=== PATIENT | male | born 1995 | race Two or more races ===

== ENCOUNTER → 2020-11-25 12:59 | Outpatient (REF) | payer OTHER, SELFPAY | LOC: HO.SL 12:59 | PROVIDERS: PCP Internal Medicine; Visit Provider Internal Medicine | DX: G47.33 Obstructive sleep apnea (adult) (pediatric) (principal) | CPT/HCPCS: 95806 ==

== ENCOUNTER 2021-03-02 07:58 | Outpatient (REF) | payer OTHER, SELFPAY ==
[2021-03-02 08:25] LABS: MANUAL DIFF FLAG NO
[2021-03-02 08:44] LABS: Basophils Absolute Auto 0.1 X10*3/uL (0.0-0.2); Eosinophils Absolute Auto 0.3 X10*3/uL (0.0-0.4); Eosinophils Percent Auto 4.6 % (0-4); Hematocrit 47.2 % (42-52); Hemoglobin 15.1 g/dl (14.0-18.0); Imm Gran Abs Auto 0.03 X10*3/uL (0.00-0.03); Imm Gran Pct Auto 0.5 % (0.0-0.4); Lymphocytes Absolute Auto 2.1 X10*3/uL (1.2-4.9); Lymphocytes Percent Auto 34.9 % (20-40); Mean Corpuscular Hemoglobin 26.5 pg (27.0-33.0); Mean Platelet Volume 11.4 fL (9.4-12.4); Monocytes Absolute Auto 0.8 X10*3/uL (0.1-1.2); Monocytes Percent Auto 13.2 % (2-11); Neutrophils Absolute Auto 2.7 X10*3/uL (2.0-8.3); Neutrophils Percent Auto 45.8 % (45-73); Platelet Count 173 X10*3/uL (160-400); Red Blood Count 5.69 X10*6/uL (4.60-5.80); Red Cell Distribution Width 12.5 % (11.0-16.0); White Blood Count 5.9 X10*3/uL (4.8-10.8)
[2021-03-02 09:01] LABS: Alanine Aminotransferase 37 U/L (0-40); Albumin Level 4.4 g/dL (3.5-5.0); Alkaline Phosphatase 59 U/L (39-117); Anion Gap 14 (12-20); Aspartate Amino Transferase 26 U/L (5-37); Bilirubin Total 0.4 mg/dL (0.0-1.0); Blood Urea Nitrogen 17 mg/dL (9-16); Calcium 9.4 mg/dL (8.4-10.2); Carbon Dioxide 28 mmol/L (22-29); Chloride 104 mmol/L (96-108); Cholesterol 171 mg/dL; Estimated Glomerular Filt Rate > 60; Glucose Fasting 89 mg/dL (60-99); HDL Cholesterol 56 mg/dL; LDL Cholesterol Calculated 96 mg/dl; Potassium 4.5 mmol/L (3.3-5.1); Sodium 141 mmol/L (135-145); Triglycerides 95 mg/dL
[2021-03-02 09:24] LABS: Thyroid Stimulating Hormone 1.31 uIU/mL (0.32-4.0)
== END 2021-03-02 07:59 | disposition home or self-care (01) ==
LOC: HO.LAB 07:58
PROVIDERS: PCP Internal Medicine; Visit Provider Internal Medicine
DX: E66.01 Morbid (severe) obesity due to excess calories (principal)
CPT/HCPCS: 36415; 80053; 80061; 84443; 85025

== ENCOUNTER → 2021-08-25 13:37 | Outpatient (BNVA) | payer OTHER, SELFPAY | PROVIDERS: PCP Internal Medicine; Visit Provider Dietitian, Registered | DX: E66.01 Morbid (severe) obesity due to excess calories (principal); Z68.41 Body mass index [BMI] 40.0-44.9, adult | CPT/HCPCS: 97802 ==

== ENCOUNTER → 2021-10-22 11:35 | Outpatient (BNVA) | payer OTHER, SELFPAY | PROVIDERS: PCP Internal Medicine; Visit Provider Dietitian, Registered | DX: E66.01 Morbid (severe) obesity due to excess calories (principal) | CPT/HCPCS: 97803 ==

== ENCOUNTER 2021-12-21 19:09 | Emergency (ER) | payer OTHER, SELFPAY | END 2021-12-21 21:46 | disposition left against medical advice (07) | PROVIDERS: Emergency Provider Emergency Medicine; PCP Internal Medicine | DX: N50.89 Other specified disorders of the male genital organs (principal) ==

== ENCOUNTER → 2021-12-23 11:32 | Outpatient (BNVA) | payer OTHER, SELFPAY | PROVIDERS: PCP Internal Medicine; Visit Provider Dietitian, Registered | DX: E66.01 Morbid (severe) obesity due to excess calories (principal); Z68.41 Body mass index [BMI] 40.0-44.9, adult; Z71.3 Dietary counseling and surveillance | CPT/HCPCS: 97803 ==

== ENCOUNTER 2021-12-24 14:24 | Outpatient (REF) | payer OTHER, SELFPAY ==
--- NOTE | ~2021-12-24 | US_ITS ---
EXAMINATION: US SCROTUM CLINICAL INFORMATION: Epididymitis-testicular pain. COMPARISON: None TECHNIQUE: A sonogram of the scrotum was performed assessing mcleod-scale appearance and color Doppler flow. Spectral Doppler analysis of the arterial and venous flow were performed in the testes bilaterally. FINDINGS: RIGHT: Right testicle measures 3.92 x 2.08 x 2.79 cm, volume 11.9 mL. No focal testicular parenchymal lesions are visualized. Spectral Doppler analysis of the arterial and venous flow is normal in the right testis. Right epididymal head is normal in size. There is a small varicocele. Right epididymal Doppler flow is normal. LEFT: Left testicle measures 4.66 x 2.37 x 3.45 cm, volume 19.9 mL. No focal testicular parenchymal lesions are visualized. Spectral Doppler analysis of the arterial and venous flow is normal in the left testis. Left epididymal head is normal in size. There is a small varicocele. Left epididymal Doppler flow is normal. US/US scrotum IMPRESSION: Small bilateral varicoceles. Normal appearance of the bilateral testes.
== END 2021-12-24 14:25 | disposition home or self-care (01) ==
LOC: HO.HMGCX 14:24
PROVIDERS: Visit Provider Internal Medicine
DX: N45.1 Epididymitis (principal)
CPT/HCPCS: 76870

== ENCOUNTER 2022-03-24 11:55 | Outpatient (REF) | payer OTHER, SELFPAY ==
[2022-03-24 12:59] LABS: Alanine Aminotransferase 61 U/L (0-40); Albumin Level 4.5 g/dL (3.5-5.0); Alkaline Phosphatase 52 U/L (39-117); Anion Gap 13 (12-20); Aspartate Amino Transferase 34 U/L (5-37); Bilirubin Total 0.5 mg/dL (0.0-1.0); Blood Urea Nitrogen 15 mg/dL (9-16); Calcium 9.3 mg/dL (8.4-10.2); Carbon Dioxide 26 mmol/L (22-29); Chloride 103 mmol/L (96-108); Cholesterol 177 mg/dL; Estimated Glomerular Filt Rate > 60; Glucose Fasting 92 mg/dL (60-99); HDL Cholesterol 56 mg/dL; LDL Cholesterol Calculated 97 mg/dl; Potassium 4.5 mmol/L (3.3-5.1); Sodium 137 mmol/L (135-145); Total Protein 7.1 g/dL (6.5-8.0); Triglycerides 121 mg/dL
== END 2022-03-24 11:56 | disposition home or self-care (01) ==
LOC: HO.LAB 11:55
PROVIDERS: PCP Internal Medicine; Visit Provider Internal Medicine
DX: Z00.00 Encounter for general adult medical examination without abnormal findings (principal); E78.5 Hyperlipidemia, unspecified
CPT/HCPCS: 36415; 80053; 80061

== ENCOUNTER 2022-04-06 11:30 | Outpatient (AMB) | payer OTHER, SELFPAY ==
--- NOTE | 2022-04-05 14:37 | A.OFFVIS_ITS ---
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 Iodinated Contrast Media [IV DYE, IODINE CONTAINING CONTRAST ] Allergy (Intermediate, Verified 03/09/23 14:42) VOMITING HPI HPI Comments History of Present Illness Details Ed is a very pleasant male. He is a patient of Dr. Calvo. He is seen for the following urologic conditions - varicocele Varicocele Natural history discussed Minimal pain No issues concerning fertility Did report prior epididymitis 6 month follow-up [facility] Medical History Asperger syndrome Depression with anxiety Eczema AKBAR (generalized anxiety disorder) Insomnia Mild recurrent major depression Morbid obesity Otitis externa Snoring Varicocele Surgical History History of hernia repair History of lymph node excision Family History Father Essential hypertension Mother Essential hypertension Sister Healthy adult Paternal Grandmother Stroke Social History Housing: Apartment Alcohol intake: never Patient Tobacco Use Status: Never used Tobacco e-Cigarette/Vaping Use: Never Used Second Hand Smoke Exposure: No service: No Current occupational status: unemployed Cognitive needs: No Hearing needs: No Vision needs: No Review of Systems Const Denies chills and Denies fever(s) Card Reports no additional complaints and Denies syncope Resp Denies cough GI Denies abdominal pain and Denies heartburn Reports as per HPI and Denies change in libido Neuro Denies syncope Psych Denies change in libido Endo Denies change in libido Physical Exam Const General: cooperative, healthy appearing, comfortable and no acute distress Orientation/consciousness: patient oriented x3 HEENT Face and sinus: Yes normal facial exam Mouth: moist mucous membranes Neck Neck: Yes normal visual inspection, Yes full ROM and Yes trachea midline Chest Chest palpation & inspection: normal inspection of the chest Resp Effort & Inspection: normal respiratory effort, able to speak in complete sentences and no respiratory distress GI Inspection: Yes normal to inspection Back/Spine/Pelvis Cervical Spine: normal cervical lordosis Thoracic/Lumbar Spine: thoracic and lumbar spine normal to inspection Skin General skin exam: no rashes or lesions noted Neuro General: patient oriented x3, gait normal, tone normal and moves all extremities Extrem General: Yes normal to inspection and Yes capillary refill normal Assessment & Plan Assessment & Plan (1) Varicocele: Code(s): I86.1 - Scrotal varices Plan 6 month follow-up Patient Instructions: Imaging studies, laboratory and physical exam results were discussed and reviewed in detail. No major barriers to patient understanding were identified. An opportunity to ask questions regarding the treatment plan was provided. All questions were answered. The patient expressed understanding and agreement with the above treatment plan. The patient is aware they should contact our office by phone for worsening of their current condition or the appearance of new urologic symptoms. Compliance is encouraged with any medications and followup testing that is ordered. It is a privilege to participate in the urologic care of your patient. If you have any questions or concerns regarding treatment for the above conditions, or other urologic issues, please do not hesitate to contact me. The office telephone contact is [phone]. This note is constructed using voice recognition software. While every effort has been made to ensure accuracy before school babysitter errors may have been included. Yours sincerely, Dr Dameon Hurtado MD, [facility] - Urology Providers of Expert, Compassionate Care for the Genitourinary System Coding Level of Care Code New Pt Level 3 (95062) Diagnoses Varicocele I86.1
== END 2022-04-06 12:17 | disposition home or self-care (01) ==
LOC: HO.HUSH 11:30
PROVIDERS: PCP Internal Medicine; Visit Provider Urology
DX: I86.1 Scrotal varices (principal)
CPT/HCPCS: 99203

== ENCOUNTER → 2022-04-06 11:30 | Outpatient (BNVA) | payer OTHER, SELFPAY | PROVIDERS: PCP Internal Medicine; Visit Provider Urology | DX: I86.1 Scrotal varices (principal) | CPT/HCPCS: 99202 ==

== ENCOUNTER → 2022-10-12 13:37 | Outpatient (BNVA) | payer OTHER, SELFPAY | PROVIDERS: PCP Internal Medicine; Visit Provider Urology | DX: I86.1 Scrotal varices (principal) | CPT/HCPCS: 99212 ==

== ENCOUNTER 2022-12-07 20:09 | Outpatient (REF) | payer OTHER, SELFPAY ==
[2022-12-07 21:16] LABS: Influenza A PCR NEGATIVE (Negative); Influenza B PCR NEGATIVE (Negative); Resp Syncy Virus RNA Qual PCR NEGATIVE (Negative); SARS COV2 PCR INHOUSE NEGATIVE (Negative)
== END 2022-12-07 20:10 | disposition home or self-care (01) ==
LOC: HO.LNP 20:09
PROVIDERS: Visit Provider Nurse Practitioner Family
DX: Z20.822 Contact with and (suspected) exposure to COVID-19 (principal); R09.89 Other specified symptoms and signs involving the circulatory and respiratory systems
CPT/HCPCS: 0241U

== ENCOUNTER 2023-02-06 02:23 | Emergency (ER) | payer OTHER, SELFPAY ==
[2023-02-06 02:34] VITALS: BP 142/77; PULSE 104; RESP 16; TEMP 36.7; O2SAT 97; BMI 40.4
[2023-02-06] MEDS: 0.9 % Sodium Chloride 1,000 ML 999 ML IV ×2 (04:17→05:42)
[2023-02-06 04:23] LABS: MANUAL DIFF FLAG NO
[2023-02-06 04:24] LABS: Basophils Absolute Auto 0.1 X10*3/uL (0.0-0.2); Basophils Percent Auto 0.5 % (0-2); Eosinophils Absolute Auto 0.1 X10*3/uL (0.0-0.4); Eosinophils Percent Auto 0.9 % (0-4); Hematocrit 55.3 % (42.0-52.0); Hemoglobin 18.1 g/dl (14.0-18.0); Imm Gran Abs Auto 0.06 X10*3/uL (0.00-0.03); Imm Gran Pct Auto 0.5 % (0.0-0.4); Lymphocytes Absolute Auto 0.7 X10*3/uL (1.2-4.9); Lymphocytes Percent Auto 5.8 % (20-40); Mean Corpuscular HGB Conc 32.7 g/dl (31.0-36.0); Mean Corpuscular Hemoglobin 26.6 pg (27.0-33.0); Mean Corpuscular Volume 81.2 fL (80.0-98.0); Mean Platelet Volume 11.1 fL (9.4-12.4); Monocytes Absolute Auto 0.9 X10*3/uL (0.1-1.2); Neutrophils Absolute Auto 9.8 x10*3/uL (2.0-8.3); Neutrophils Percent Auto 84.3 % (45-73); Platelet Count 208 X10*3/uL (160-400); Red Blood Count 6.81 X10*6/uL (4.60-5.80); Red Cell Distribution Width 12.4 % (11.0-16.0); White Blood Count 11.6 X10*3/uL (4.8-10.8)
[2023-02-06 05:11] LABS: Alanine Aminotransferase 46 U/L (0-40); Albumin Level 4.6 g/dL (3.5-5.0); Alkaline Phosphatase 56 U/L (39-117); Anion Gap 17 (12-20); Aspartate Amino Transferase 25 U/L (5-37); Bilirubin Total 0.7 mg/dL (0.0-1.0); Blood Urea Nitrogen 19 mg/dL (9-16); Calcium 9.2 mg/dL (8.4-10.2); Carbon Dioxide 24 mmol/L (22-29); Chloride 107 mmol/L (96-108); Creatinine Clr Calc Pharmacy 187.4; Estimated Glomerular Filt Rate > 60; Glucose Random 100 mg/dL (60-115); Potassium 4.5 mmol/L (3.3-5.1); Sodium 143 mmol/L (135-145); Total Protein 7.5 g/dL (6.5-8.0)
--- NOTE | 2023-02-06 05:41 | ED.NAVMDI ---
HPI - Nausea/Vomiting/Diarrhea General Chief complaint: Abdominal Pain Stated complaint: Diarrhea Time Seen by Provider: 02/06/23 03:57 Source: patient Mode of arrival: ambulatory History of Present Illness HPI Narrative: 27-year-old male who presents with multiple episodes of nausea, vomiting, diarrhea that began after he ate a ham and metzger sandwich. Patient denies any complaints of abdominal pain or urinary symptoms prior to this event and denies any associated fevers or chills. Patient states that his last episode of diarrhea which just prior to arrival and that his last vomiting episode occurred in the waiting room. Related Data Home Medications Medication Instructions Recorded Confirmed lorazepam 1 mg tablet (Ativan) 1 mg PO BID PRN 10/15/20 12/07/22 escitalopram oxalate 10 mg tablet 15 mg PO BEDTIME 12/17/21 12/07/22 trazodone 100 mg tablet 100 mg PO BEDTIME 12/17/21 12/07/22 Previous Rx's Medication Instructions Recorded ibuprofen 600 mg tablet 600 mg PO Q8H PRN pain 10 days #30 12/21/21 tabs bupropion HCl 150 mg 24 hr tablet, 150 mg PO QAM 30 days #30 tabs 03/31/22 extended release nirmatrelvir 300 mg (150 mg 3 ea PO PER PKG DIR 5 days #30 ea 09/21/22 x2)-ritonavir 100 mg tablet,dose pack(EUA) (Paxlovid) sumatriptan succinate 50 mg tablet 50 mg PO Q2-4H PRN migraine 11/03/22 headache 30 days #9 tabs amoxicillin 875 mg-potassium 1 tab PO Q12H 10 days #20 tabs 12/07/22 clavulanate 125 mg tablet ondansetron 4 mg oral soluble film 4 mg PO Q8H PRN nausea and 02/06/23 vomiting #30 ea Allergies Allergy/AdvReac Type Severity Reaction Status Date / Time barium sulfate Allergy Intermediate VOMITING Verified 12/07/22 15:30 [ORAL CONTRAST] RED. Iodinated Contrast Media Allergy Intermediate VOMITING Verified 12/07/22 15:30 [IV DYE, IODINE CONTAINING CONTRAST ] Review of Systems Review of Systems: Pertinent positives and negatives as stated in HPI PMFSH Past Medical History Source: nursing notes reviewed Medical History Asperger syndrome Depression with anxiety Eczema AKBAR (generalized anxiety disorder) Insomnia Mild recurrent major depression Morbid obesity Otitis externa Snoring Varicocele Surgical History History of hernia repair History of lymph node excision Family History Family History Father Essential hypertension Mother Essential hypertension Sister Healthy adult Paternal Grandmother Stroke Social History Social History Housing: Apartment Alcohol intake: never Patient Tobacco Use Status: Never used Tobacco Tobacco use type: Cigarette e-Cigarette/Vaping Use: Never Used Second Hand Smoke Exposure: No Advance Directives: No Advance Directives Information Provided: Yes service: No Current occupational status: unemployed Current occupational exposures/hazards: Yes (possibly while he was in school over a year ago) Cognitive needs: No Hearing needs: No Vision needs: No Physical Exam Vital Signs: Vital Signs: Last Vital Signs Temp 98.1 F 02/06/23 02:34 Pulse 104 H 02/06/23 02:34 Resp 16 02/06/23 02:34 BP 142/77 H 02/06/23 02:34 Pulse Ox 97 02/06/23 02:34 O2 Del Method Room Air 02/06/23 02:34 BMI result Body Mass Index 40.4 VITAL SIGNS: Reviewed. GENERAL: Well developed, well nourished, in no acute distress. HEAD: Normocephalic/atraumatic EYES: PERRLA, EOMI EARS: Ext canals without abnormality NOSE: Nares patent bilateral OROPHARYNX: no oral lesions noted, posterior pharynx clear NECK: Supple, no adenopathy LUNGS: Normal breath sounds. No adventitious sounds or accessory muscle use. SpO2<97> CARDIOVASCULAR: Regular rate and rhythm without noted murmurs ABDOMEN: Soft, non-tender, non-distended with bowel sounds. MUSCULOSKELETAL: No tenderness, deformities, or effusions noted on gross inspection. EXTREMITIES: No cyanosis, clubbing or edema. SKIN: Inspection of the skin reveals no rashes NEUROLOGIC: Alert and oriented x 4. Strength and sensation to light touch were grossly intact x 4. Medications Administered Discontinued Medications Generic Name Dose Route Start Last Admin Trade Name Freq PRN Reason Stop Dose Admin Sodium Chloride 1,000 mls @ 999 mls/hr 02/06/23 04:00 02/06/23 05:21 Ns IV 02/06/23 05:00 Infused .Q1H1M ROBERTO Infusion Medical Decision Making Medical Decision Making MDM Narrative: 27-year-old male for whom I strongly suspect food poisoning with corresponding gastroenteritis, patient has received IV fluids, antiemetics and on review of all investigations and after re-evaluation patient states he is feeling much better and my interpretation is that patient had food poisoning. Patient states his stomach is feeling much better he is no longer nauseous or vomiting and is no longer having any diarrhea. Noted lab derangements are likely secondary to stress response and dehydration. Differential Diagnosis Please see the discussion above Lab Data Please see the discussion above 02/06/23 04:19 02/06/23 04:50 Labs: Lab Results 02/06/23 02/06/23 Range/Units 04:19 04:50 WBC 11.6 H (4.8-10.8) X10*3/uL RBC 6.81 H (4.60-5.80) X10*6/uL Hgb 18.1 H (14.0-18.0) g/dl Hct 55.3 H (42.0-52.0) % MCV 81.2 (80.0-98.0) fL MCH 26.6 L (27.0-33.0) pg MCHC 32.7 (31.0-36.0) g/dl RDW 12.4 (11.0-16.0) % Plt Count 208 (160-400) X10*3/uL MPV 11.1 (9.4-12.4) fL Immature Gran % (Auto) 0.5 H (0.0-0.4) % Neut % (Auto) 84.3 H (45-73) % Lymph % (Auto) 5.8 L (20-40) % Beadle % (Auto) 8.0 (2-11) % Eos % (Auto) 0.9 (0-4) % Baso % (Auto) 0.5 (0-2) % Lymph # (Auto) 0.7 L (1.2-4.9) X10*3/uL Beadle # (Auto) 0.9 (0.1-1.2) X10*3/uL Eos # (Auto) 0.1 (0.0-0.4) X10*3/uL Baso # (Auto) 0.1 (0.0-0.2) X10*3/uL Abs Immat Gran (auto) 0.06 H (0.00-0.03) X10*3/uL Absolute Neuts (auto) 9.8 H (2.0-8.3) x10*3/uL Absolute Nucleated RBC 0.000 (0.0-0.012) X10*3/uL Nucleated RBC % (auto) 0.0 (0.0-0.2) /100WBC Sodium 143 (135-145) mmol/L Potassium 4.5 (3.3-5.1) mmol/L Chloride 107 (96-108) mmol/L Carbon Dioxide 24 (22-29) mmol/L Anion Gap 17 (12-20) BUN 19 H (9-16) mg/dL Creatinine 0.85 (0.5-1.4) mg/dL Estim Creat Clear Calc 187.4 Estimated GFR > 60 Random Glucose 100 (60-115) mg/dL Calcium 9.2 (8.4-10.2) mg/dL Total Bilirubin 0.7 (0.0-1.0) mg/dL AST 25 (5-37) U/L ALT 46 H (0-40) U/L Alkaline Phosphatase 56 (39-117) U/L Total Protein 7.5 (6.5-8.0) g/dL Albumin 4.6 (3.5-5.0) g/dL External Record Review External record reviewed: Prior outpatient labs Discharge Plan Discharge Clinical Impression: Food poisoning, Gastroenteritis, Dehydration Patient Disposition: Home, Self-Care Instructions: Dehydration (ED), Gastroenteritis (ED), Food Poisoning (ED), Nutrition Tips for Relief of Diarrhea (ED) Additional Instructions: 1. Resume all home medications as prescribed. 2. Increase the amount of water intake, combine with Gatorade or Pedialyte, you have been given a prescription for antinausea medication. 3. Follow-up with your PCP on Tuesday morning. Return to the ER for any worsening symptoms. Prescriptions: New ondansetron 4 mg film 4 mg PO Q8H PRN (Reason: nausea and vomiting) Qty: 30 0RF No Action ibuprofen 600 mg tablet 600 mg PO Q8H PRN (Reason: pain) 10 Days Qty: 30 0RF bupropion HCl 150 mg tablet extended release 24 hr 150 mg PO QAM 30 Days Qty: 30 0RF Paxlovid (EUA) 300 mg (150 mg x 2)-100 mg tablets,dose pack 3 ea PO PER PKG DIR 5 Days Qty: 30 0RF sumatriptan succinate 50 mg tablet 50 mg PO Q2-4H PRN (Reason: migraine headache) 30 Days Qty: 9 2RF Rx Instructions: do not exceed 4 doses per 24 hrs lorazepam [Ativan] 1 mg tablet 1 mg PO BID PRN amoxicillin-pot clavulanate 875-125 mg tablet 1 tab PO Q12H 10 Days Qty: 20 0RF escitalopram oxalate 10 mg tablet 15 mg PO BEDTIME trazodone 100 mg tablet 100 mg PO BEDTIME
[2023-02-06] MEDS: ondansetron HCL 4 MG/2 ML VIAL IVPUSH (05:42)
[2023-02-06 06:05] VITALS: BP 130/62; PULSE 92; RESP 18; TEMP 36.9; O2SAT 100
[2023-02-06 11:49] LABS: Adenovirus F 40/41 Not Detected (Not Detect.); Astrovirus Not Detected (Not Detect.); Campylobacter Not Detected (Not Detect.); Cryptosporidium Not Detected (Not Detect.); Cyclospora cayetanensis Not Detected (Not Detect.); E. coli EAEC Not Detected (Not Detect.); E. coli EPEC Not Detected (Not Detect.); E. coli ETEC Not Detected (Not Detect.); E. coli STEC Not Detected (Not Detect.); Entamoeba histolytica Not Detected (Not Detect.); Giardia lamblia Not Detected (Not Detect.); Plesiomonas shigelloides Not Detected (Not Detect.); Rotavirus A Not Detected (Not Detect.); Salmonella Not Detected (Not Detect.); Sapovirus Not Detected (Not Detect.); Shigella sp./EIEC Not Detected (Not Detect.); Vibrio Not Detected (Not Detect.); Vibrio Cholerae Not Detected (Not Detect.); Yersinia enterocolitica Not Detected (Not Detect.)
[2023-02-06 11:56] LABS: Norovirus GI/GII Detected (Not Detect.)
== END 2023-02-06 06:50 | disposition home or self-care (01) ==
PROVIDERS: Emergency Provider Student in an Organized Health Care Education/Training Program
DX: A05.9 Bacterial foodborne intoxication, unspecified (principal); K52.9 Noninfective gastroenteritis and colitis, unspecified; E86.0 Dehydration; Z20.822 Contact with and (suspected) exposure to COVID-19; Z20.828 Contact with and (suspected) exposure to other viral communicable diseases; Z79.899 Other long term (current) drug therapy
CPT/HCPCS: 36415; 80053; 85025; 87507; 96361; 96374; 99284; J2405

== ENCOUNTER 2023-06-17 14:06 | Outpatient (AMB) | payer OTHER, SELFPAY ==
--- NOTE | 2023-06-17 15:34 | MHC.OFFWIV ---
Intake Vital Signs 06/17/23 15:44 Weight 299 lb BP 112/60 Blood Pressure Location Lt brachial Position Sitting Pulse 82 Pulse Source Pulse Oximeter Temp 98.6 F Temp Source Oral Intake Visit Reasons: EST/cold/flu symptoms [phone] Intake Note: Patient here ingestion, tight ears, congestion, cough and wheezing for about 9 days. Patient Tobacco Use Status: Never used Tobacco Allergies barium sulfate [ORAL CONTRAST] Allergy (Intermediate, Verified 06/17/23 15:35) VOMITING RED. Iodinated Contrast Media [IV DYE, IODINE CONTAINING CONTRAST ] Allergy (Intermediate, Verified 06/17/23 15:35) VOMITING Do you need a note to return to daycare/school/sports/work: No HPI HPI Comments History of Present Illness Details This is a 27-year-old male who presents to the office today for sick visit. Patient complaining of chest congestion, dry cough, and wheezing in the setting of viral URI symptoms x9 days. patient states he started to developed viral URI symptoms such as nasal congestion, rhinorrhea, sore throat, and otalgia approximately 9 days ago. He states the symptoms originally started to get better but then worsened and he has now been having chest congestion, dry cough, and wheezing. He reports some hot sweats but denies any known fevers. He denies any chest pain or shortness of breath. He denies any abdominal pain or nausea/vomiting/ diarrhea. [facility] Medical History Asperger syndrome Depression with anxiety Eczema AKBAR (generalized anxiety disorder) Insomnia Mild recurrent major depression Morbid obesity Otitis externa Snoring Varicocele Surgical History History of hernia repair History of lymph node excision Family History Father Essential hypertension Mother Essential hypertension Sister Healthy adult Paternal Grandmother Stroke Social History Housing: Apartment Alcohol intake: never Patient Tobacco Use Status: Never used Tobacco e-Cigarette/Vaping Use: Never Used Second Hand Smoke Exposure: No service: No Current occupational status: unemployed Cognitive needs: No Hearing needs: No Vision needs: No Review of Systems Const All systems reviewed & are unremarkable except as noted in HPI and below Reports no additional complaints Eyes Reports no additional complaints ENT Reports no additional complaints Card Reports no additional complaints Resp Reports no additional complaints GI Reports no additional complaints Reports no additional complaints Musc Reports no additional complaints Skin/Breast Reports system reviewed and no additional complaints, except as documented Neuro Reports no additional complaints Psych Reports no additional complaints Endo Reports no additional complaints Axel/Lymph Reports no additional complaints Aller/Immun Reports no additional complaints Physical Exam Vital Signs: Last Vital Signs Temp 98.6 F 06/17/23 15:44 Pulse 82 06/17/23 15:44 BP 112/60 06/17/23 15:44 Const Other: Vital signs reviewed. Constitutional: Non-toxic appearing. No acute distress. Well-developed and well-nourished. HEENT: Normocephalic and atraumatic. Tympanic membranes without erythema, edema, or bulging bilaterally. Mild erythema of bilateral external auditory canals.Moist mucous membranes. No pharyngeal erythema or exudates. Skin: Warm and dry. No rashes or lesions noted. Neck: Full and painless range of motion. No cervical lymphadenopathy. Cardio: Regular rate and rhythm. No murmurs, gallops, or rubs. No lower extremity edema. No JVD. Pulmonary: No respiratory distress. No accessory muscle usage. Clear to auscultation bilaterally without wheezing, crackles, or rhonchi. Gastrointestinal: Soft, nontender, and nondistended in all 4 quadrants. Normoactive bowel sounds in all 4 quadrants. Genitourinary: No CVA tenderness. Musculoskeletal: Normal range of motion in joints throughout the body. No deformity or other signs of injury. Neuro: Alert and oriented x4. Cranial nerves 2-12 grossly intact. No focal deficits appreciated. Psych: Normal mood and affect. Assessment & Plan Assessment & Plan (1) Acute bronchitis: Code(s): J20.9 - Acute bronchitis, unspecified Plan: 27-year-old male presenting to the office complaining of chest congestion, dry cough, and wheezing in the setting of persistent/ worsening viral URI symptoms. On physical examination, patient's lungs are clear to auscultation bilaterally and he is overall nontoxic appearing. History and physical most consistent with an acute bronchitis in the setting of viral URI symptoms. Patient is maintaining oxygen saturations on room air and his vital signs are stable. Chest x-ray has been obtained to evaluate for pneumonia. Patient will be sent home on p.o. prednisone 40 mg daily x5 days as well as p.o. azithromycin 500 mg today followed by 250 mg daily x4 days. Recommended symptomatic management including rest, increased fluids, advil/tylenol for pain/fever, and over the counter throat lozenges/decongestants. Patient advised to follow up here or go to the emergency room for worsening/persistent symptoms. Patient verbalized understanding and is agreeable with the plan. Orders: Orders XR chest 2V Today R05.9 - Cough, unspecified Medications: New prednisone 40 mg (2 x 20 mg) PO DAILY 10 tabs 0RF azithromycin For 250 mg dose pack: take 500 mg today (day 1), then 250 mg for 4 days (days 2-5) PO 6 tabs 0RF Coding Level of Care Code Est Pt Level 3 (81891) Diagnoses Acute bronchitis J20.9
[2023-06-17 15:44] VITALS: BP 112/60; PULSE 82; TEMP 37
== END 2023-06-17 17:00 | disposition home or self-care (01) ==
PROVIDERS: Visit Provider Physician Assistant Medical
DX: J20.9 Acute bronchitis, unspecified (principal)
CPT/HCPCS: 99213

== ENCOUNTER 2023-06-17 16:03 | Outpatient (REF) | payer OTHER, SELFPAY | END 2023-06-17 16:04 | disposition home or self-care (01) | LOC: HO.HMGCX 16:03 | PROVIDERS: Visit Provider Physician Assistant Medical | DX: R05.9 Cough, unspecified (principal) | CPT/HCPCS: 71046 ==

== ENCOUNTER 2023-06-22 | Outpatient (REF) | payer OTHER, SELFPAY | END 2023-06-22 00:01 | disposition home or self-care (01) | LOC: HO.LNP | PROVIDERS: Visit Provider Physician Assistant | DX: R35.0 Frequency of micturition (principal) | CPT/HCPCS: 87086 ==

== ENCOUNTER 2023-06-22 14:55 | Outpatient (AMB) | payer OTHER, SELFPAY ==
[2023-06-22 14:56] VITALS: BP 122/76; PULSE 76; TEMP 36.6; O2SAT 97; BMI 40.5
--- NOTE | 2023-06-22 14:56 | AM.OFFWIN_ITS ---
Intake Vital Signs 06/22/23 14:56 Height 6 ft Weight 299 lb BMI 40.5 BP 122/76 Blood Pressure Location Lt brachial Position Sitting Pulse 76 Pulse Source Pulse Oximeter Temp 97.9 F Temp Source Temporal Artery Scan Pulse Oximetry (%) 97 Oxygen Delivery Method Room Air Intake Visit Reasons: EP, UTI? Intake Note: pt is here for c/o possible uti Patient Tobacco Use Status: Never used Tobacco Allergies barium sulfate [ORAL CONTRAST] Allergy (Intermediate, Verified 06/22/23 14:57) VOMITING RED. Iodinated Contrast Media [IV DYE, IODINE CONTAINING CONTRAST ] Allergy (Intermediate, Verified 06/22/23 14:57) VOMITING Do you need a note to return to daycare/school/sports/work: Yes HPI HPI Comments History of Present Illness Details This is a 27-year-old male presenting with his mother for evaluation of urinary frequency over the past 2 days. Patient denies having any fevers, chills, abdominal pain, hematuria, dysuria or penile discharge. Patient describes a pressure-like sensation in his upper prior to urination. Patient is sexually active and denies having any new sexual partners. COUNT INCLUDES [facility] Medical History Varicocele AKBAR (generalized anxiety disorder) Mild recurrent major depression Snoring Morbid obesity Otitis externa Insomnia Eczema Asperger syndrome Depression with anxiety Surgical History History of hernia repair History of lymph node excision Family History Father Essential hypertension Mother Essential hypertension Sister Healthy adult Paternal Grandmother Stroke Social History Housing: Apartment Alcohol intake: never Patient Tobacco Use Status: Never used Tobacco e-Cigarette/Vaping Use: Never Used Second Hand Smoke Exposure: No service: No Current occupational status: unemployed Cognitive needs: No Hearing needs: No Vision needs: No Review of Systems Const Denies chills and Denies fever(s) Denies hematuria, Denies oliguria, Denies difficulty urinating, Denies dysuria, Denies nocturia, Denies testicular mass, Denies testicular pain, Reports urinary frequency and Denies urinary incontinence Physical Exam Vital Signs: Last Vital Signs Temp 97.9 F 06/22/23 14:56 Pulse 76 06/22/23 14:56 BP 122/76 06/22/23 14:56 Pulse Ox 97 06/22/23 14:56 Oxygen Delivery Method Room Air 06/22/23 14:56 BMI result Body Mass Index 40.5 Const General: cooperative, healthy appearing, comfortable and no acute distress Nutritional Appearance: overweight Orientation/consciousness: patient oriented x3 Limitations: no limitations Cardio Rate: regular rate Rhythm: regular rhythm General: Yes bladder normal to palpation, No CVA tenderness and No no CVA tenderness Male General Exam: Yes other (patient declines) Back/Spine/Pelvis Back: No no CVA tenderness and No CVA tenderness Neuro General: patient oriented x3 Psych Appearance: grossly normal Mental Status: mental status grossly normal Insight: Good insight present (Psych) Judgement: Good judgement present (Psych) Results AMB Urinalysis, Automated 2 UA Leukoctes 0 Awilda/uL Last Edit by Rakan Lee CMA on 06/22/23 15:10 UA Nitrite Negative Last Edit by Rakan Lee CMA on 06/22/23 15:10 UA Urobilinogen 0.2 mg/dL Last Edit by Rakan Lee CMA on 06/22/23 15 :10 UA Protein 0 mg/dL Last Edit by Rakan Lee CMA on 06/22/23 15:10 UA pH 6.5 Last Edit by Rakan Lee CMA on 06/22/23 15:10 UA Blood 0 Yonathan/uL Last Edit by Rakan Lee CMA on 06/22/23 15:10 UA Specific [place] 1.015 Last Edit by Raakn Lee CMA on 06/22/23 15:10 UA Ketone Negative Last Edit by Rakan Lee CMA on 06/22/23 15:10 UA Bilirubin 0 mg/dL Last Edit by Rakan Lee CMA on 06/22/23 15:10 UA Glucose 0 mg/dL Last Edit by Rakan Lee CMA on 06/22/23 15:10 AMB Hemoglobin A1c AMB Hemoglobin A1c 97 % Last Edit by SHONDA Delgado on 06/22/23 15: 53 Results Reviewed Results Reviewed: Laboratory Last Values Hgb A1c (Clinic) 97 % (4.0-6.0) H 06/22/23 15:52 Urine pH (Auto) 6.5 06/22/23 15:08 Specific [place] (Auto) 1.015 06/22/23 15:08 Urine Protein (Auto) 0 mg/dL 06/22/23 15:08 Glucose (UA)(Auto) 0 mg/dL 06/22/23 15:08 Urine Ketones (Auto) Negative 06/22/23 15:08 Urine Blood (Auto) 0 Yonathan/uL 06/22/23 15:08 Urine Nitrite (Auto) Negative 06/22/23 15:08 Urine Bilirubin (Auto) 0 mg/dL 06/22/23 15:08 Urine Urobilinogen (Auto) 0.2 mg/dL 06/22/23 15:08 Leukocyte Esterase (Auto) 0 Awilda/uL 06/22/23 15:08 POC glucose 97 Assessment & Plan Assessment & Plan (1) Urinary frequency: Code(s): R35.0 - Frequency of micturition Plan Urine culture pending; no evidence of hyperglycemia. Patient advised to follow- up with his primary care provider if his symptoms persist and his urine culture is negative. Orders: Orders AMB Urinalysis Automated Today Z13.9 - Encounter for screening, unspecified Urine Culture Today R35.0 - Frequency of micturition AMB Hemoglobin A1c Today Z13.9 - Encounter for screening, unspecified AMB Random Glucose (hemocue) Today Z13.9 - Encounter for screening, unspecified Coding Level of Care Code New Pt Level 3 (26604) Diagnoses Urinary frequency R35.0 Time Spent (min) 20
== END 2023-06-22 16:02 | disposition home or self-care (01) ==
PROVIDERS: Visit Provider Physician Assistant
DX: R35.0 Frequency of micturition (principal)
CPT/HCPCS: 81003; 82948; 99203

== ENCOUNTER 2024-01-30 14:27 | Outpatient (AMB) | payer OTHER, SELFPAY ==
[2024-01-30 15:35] VITALS: BP 120/76; PULSE 97; TEMP 37.1; O2SAT 99; BMI 39.4
--- NOTE | 2024-01-30 15:35 | AM.OFFWIN_ITS ---
Intake Vital Signs 01/30/24 15:35 Height 6 ft Weight 290 lb 4 oz BMI 39.4 BP 120/76 Blood Pressure Location Lt brachial Position Sitting Pulse 97 Pulse Source Pulse Oximeter Temp 98.7 F Temp Source Oral Pulse Oximetry (%) 99 Oxygen Delivery Method Room Air Intake Visit Reasons: EP Nasal/Flu like symptoms Intake Note: Pt is here today for cough congestion, and fatigue. Pt did mentioned symptoms started after he came back from his trip fom [place] last wk. Patient Tobacco Use Status: Never used Tobacco Allergies barium sulfate [ORAL CONTRAST] Allergy (Intermediate, Verified 01/30/24 15:38) VOMITING RED. Iodinated Contrast Media [IV DYE, IODINE CONTAINING CONTRAST ] Allergy (Intermediate, Verified 01/30/24 15:38) VOMITING Do you need a note to return to daycare/school/sports/work: No HPI HPI Comments History of Present Illness Details Patient presents to the walk-in today for sick visit Endorses congestion, fatigue for last 8 days Just returned from [place], states it started after he arrived there Was given Z-Eliel in [place], finished that today but has not noticed any improvement [facility] Medical History Varicocele AKBAR (generalized anxiety disorder) Mild recurrent major depression Snoring Morbid obesity Otitis externa Insomnia Eczema Asperger syndrome Depression with anxiety Surgical History History of hernia repair History of lymph node excision Family History Father Essential hypertension Mother Essential hypertension Sister Healthy adult Paternal Grandmother Stroke Social History Housing: Apartment Alcohol intake: never Patient Tobacco Use Status: Never used Tobacco e-Cigarette/Vaping Use: Never Used Second Hand Smoke Exposure: No service: No Current occupational status: unemployed Cognitive needs: No Hearing needs: No Vision needs: No Review of Systems Const All systems reviewed & are unremarkable except as noted in HPI and below Physical Exam Vital Signs: Last Vital Signs Temp 98.7 F 01/30/24 15:35 Pulse 97 01/30/24 15:35 BP 120/76 01/30/24 15:35 Pulse Ox 99 01/30/24 15:35 Oxygen Delivery Method Room Air 01/30/24 15:35 BMI result Body Mass Index 39.4 General: awake, alert, oriented. Answers questions appropriately. Fully engaged in examination. Skin: warm, dry, intact HEENT: TMs intact bilaterally, without erythema. Posterior pharynx without erythema or exudate. Sclera without icterus or injection. Cardiac: External chest normal in appearance. Respiratory: LSCTAB. Abdomen: without gross distension. Neurological: Oriented to person, place, time and situation. Thought process intact. Psychiatric: Appropriate mood and affect. Good judgment and insight. Assessment & Plan Assessment & Plan (1) URI (upper respiratory infection): Code(s): J06.9 - Acute upper respiratory infection, unspecified Plan URI, no abx warranted. Rest, drink plenty of fluids, tylenol or motrin as needed. Recommend taking OTC nasal decongestants. Follow up with pcp or in clinic for any new or worsening symptoms. Go to ER for shortness of breath, chest pain, palpitations, weakness, dizziness. Coding Level of Care Code Est Pt Level 3 (19160) Diagnoses URI (upper respiratory infection) J06.9
== END 2024-01-30 16:14 | disposition home or self-care (01) ==
PROVIDERS: Visit Provider Registered Nurse Emergency
DX: J06.9 Acute upper respiratory infection, unspecified (principal)
CPT/HCPCS: 99213

== ENCOUNTER 2024-07-18 14:22 | Outpatient (AMB) | payer OTHER, SELFPAY ==
--- NOTE | 2024-07-18 14:26 | MHC.PC.OV ---
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 Iodinated Contrast Media [IV DYE, IODINE CONTAINING CONTRAST ] Allergy (Intermediate, Verified 07/18/24 14:45) VOMITING Medication List - Last Reconciled 07/18/24 by Odalis Calvo MD bupropion HCl XL 150 mg PO QAM 30 days escitalopram oxalate 15 mg PO BEDTIME hydrocortisone 1% (Anti-Itch (hydrocortisone)) 1 appl topical TID PRN 30 days ibuprofen 600 mg PO Q8H PRN 10 days lorazepam (Ativan) 1 mg PO BID PRN sumatriptan succinate 50 mg PO Q2-4H PRN 30 days trazodone 100 mg PO BEDTIME Tobacco use date assessed: 07/18/24 Dental Screening Dental Screen Date: 07/18/24 Did you have a dental visit in the last 12 months?: No Did you have a dental problem in the last 6 months where you did not have access to dental care?: No Was dental information given to patient?: Patient has dentist HPI HPI Comments History of Present Illness Details This is a 28-year-old male with mild recurrent major depression that comes for his physical exam. Depression is follow by Psychiatry. No acute complaints. He is obese with a BMI of 37.8 and was advised to do diet and exercise to reach BMI goal less than 30. [facility] Medical History (Updated 07/18/24 @ 14:55 by Odalis Calvo MD) Varicocele AKBAR (generalized anxiety disorder) Mild recurrent major depression Snoring Morbid obesity Otitis externa Insomnia Eczema Asperger syndrome Depression with anxiety Surgical History History of lymph node excision History of hernia repair Family History Father Essential hypertension Mother Essential hypertension Sister Healthy adult Paternal Grandmother Stroke Social History Housing: Apartment Alcohol intake: never Patient Tobacco Use Status: Never used Tobacco e-Cigarette/Vaping Use: Never Used Second Hand Smoke Exposure: No service: No Current occupational status: unemployed Cognitive needs: No Hearing needs: No Vision needs: No Questionnaire PHQ-9 Over the last 2 weeks, how often have you been bothered by any of the following problems? 1. Little interest or pleasure in doing things: not at all 2. Feeling down, depressed, or hopeless: not at all 3. Trouble falling or staying asleep, or sleeping too much: not at all 4. Feeling tired or having little energy: not at all 5. Poor appetite or overeating: not at all 6. Feeling bad about yourself - or that you are a failure or have let yourself or your family down: not at all 7. Trouble concentrating on things, such as reading the newspaper or watching television: not at all 8. Moving or speaking so slowly that other people could have noticed. Or the opposite - being so fidgety or restless that you have been moving around a lot more than usual: not at all 9. Thoughts that you would be better off or of hurting yourself in some way: not at all Total score: 0 Depression Screening Interpretation: Negative Depression Screening Done: Yes 79159 - PHQ-9 Billing: Yes Source: Developed by Drs. Bertin Rodriguez, Niurka Bonds, Ross Phillips and colleagues, with an educational gabe from [employer]. Thrive Questionnaire Date Thrive assessed: 07/17/24 I am a: Patient What is your living situation today?: I have a steady place to live Within the past 12 months, did the food you bought not last and you didn't have the money to get more?: Never true Within the past 12 months, did you worry whether your food would run out before you got money to buy more?: Never true Do you have trouble paying for medicines?: No Do you have trouble getting transportation to medical appointments?: No Do you have trouble paying your heating and electricity bill?: No Do you have trouble taking care of your child, family member or friend?: No Do you have trouble with day-to-day activities such as bathing, preparing meals, shopping, managing finances, etc.?: No Are you currently unemployed and looking for a job?: No Are you interested in more education?: No Please select the resources that you would like help with: None Currently or been in a relationship where the following occur: No concerns reported THRIVE Score: 0 AUDIT C Alcohol Use Questionnaire (AUDIT-C) 1. How often do you have a drink containing alcohol?: Never Total Score: 0 Score Reviewed/Action Taken: No AKBAR-7 AMB Questionnaire AKBAR-7 Date AKBAR - 7 assessed: 07/18/24 Feeling nervous, anxious, or on edge: 0 = Not at all Not being able to stop or control worryin = Not at all Worrying too much about different things: 0 = Not at all Trouble relaxin = Not at all Being so restless that it is hard to sit still: 0 = Not at all Becoming easily annoyed or irritable: 0 = Not at all Feeling afraid as if something awful might happen: 0 = Not at all Total AKBAR-7 score (0-4 normal; 5-9 mild; 10-14 moderate; 15-21 severe): 0 Source: Developed by Drs. Bertin Rodriguez, Niurka Bonds, Ross Phillips and colleagues, with an educational gabe from [employer]. AKBAR-7 Assessment Billing AKBAR-7 Assessment Tool: AKBAR-7 Assessment 42140 Review of Systems Const All systems reviewed & are unremarkable except as noted in HPI and below Card Denies chest pain at rest, Denies chest pain with activity, Denies edema, Denies irregular heart rhythm, Denies claudication, Denies dyspnea, Denies dyspnea on exertion, Denies orthopnea, Denies paroxysmal nocturnal dyspnea and Denies slow heart rate Resp Denies cough, Denies dyspnea and Denies dyspnea on exertion Physical exam (Primary Care) Vital Signs: Last Vital Signs BP 118/80 07/18/24 14:27 BMI result Body Mass Index 37.8 BMI Assessment/Plan discussion: High BMI High, discussed plan: lifestyle, weight reduction, dietary and physical activity Tobacco/Smoking Status: Tobacco use Status Tobacco use date assessed 07/18/24 07/18/24 14:39 Patient Tobacco Use Status Never used Tobacco 07/18/24 14:27 Tobacco use type 03/09/23 14:54 e-Cigarette/Vaping Use Never Used 11/06/24 14:27 PHQ-9: PHQ-9 Score PHQ-9: Total score 0 07/18/24 15:00 Depression Screening Interpretation: Negative Thrive Assessment: Date of Thrive Assessment Date Thrive assessed 07/17/24 07/18/24 14:27 Currently or been in a relationship where the following occur: No concerns reported [facility] Head: Yes normal to inspection, Yes normocephalic and Yes atraumatic Ears: external ears normal Eyes General: appearance normal, both eyes and all related structures Eyelids: Yes eyelids normal Conjunctivae: conjunctivae normal Neck Neck: Yes normal visual inspection and Yes supple Resp Effort & Inspection: normal respiratory effort Auscultation: clear to auscultation bilaterally Cardio Jugular venous distension: no JVD Rate: regular rate Rhythm: regular rhythm Heart sounds: S1 normal heart sound present and S2 normal heart sound present GI Inspection: Yes normal to inspection Palpation (GI): Soft to palpation and nontender Auscultation: normal bowel sounds Skin General skin exam: no rashes or lesions noted Neuro General: no focal motor deficits Extrem General: Yes full ROM Psych Appearance: grossly normal Office Procedures Flu Questionnaire Does the patient have a severe egg allergy?: No Does the patient have severe life threatening allergies?: No Does the patient have a fever or illness today?: No Has the patient ever had Guillain-[place] Syndrome?: No Has the patient ever had any past reaction to a flu shot?: No Immunizations Fluarix Triv 3943-0318 (PF) 45 mcg (15 mcg x 3)/0.5 mL IM syringe Performing Provider: Odalis Calvo MD [facility] Administered by: SEBASTIÁN Gilmore on 07/18/24 14:57 Dose Route Admin Location Dispensed Lot Number Expiration Date [facility] Clinical Trial Assistant 0.5 mL IM Left Deltoid 0.5 mL [id number] 03/11/25 [id number] Coin VIS Given Date VIS Provided VIS Publication Date 07/18/24 Single Vaccine 21 Eligibility Eligibility Date Funding Source Not [facility] Eligible 07/18/24 Private Coding Level of Care Code Est Pt Prev Care 18-39y(16628) Diagnoses Physical exam Z00.00 Mild recurrent major depression F33.0 Additional Codes AKBAR-7 Assessment Billing - AKBAR-7 Assessment Tool: AKBAR-7 Assessment 93674 ([id number]) PHQ-9 - 05812 - PHQ-9 Billing: Yes ([id number]) Time Spent (min) 30 Assessment & Plan Assessment & Plan (1) Physical exam: Code(s): Z00.00 - Encounter for general adult medical examination without abnormal findings Category: Medical Plan: Repeat in a year. (2) Mild recurrent major depression: Code(s): F33.0 - Major depressive disorder, recurrent, mild Category: Medical Plan: Continue bupropion and escitalopram. Follow-up with psychiatry. Orders: Orders Comprehensive Lynndyl. Panel Fast Today Z00.00 - Encounter for general adult medical examination without abnormal findings Lipid Panel Today Z00.00 - Encounter for general adult medical examination without abnormal findings Vitamin D 25-OH Total Today R53.83 - Other fatigue Influenza 2838-3110 Immunization Today Z23 - Encounter for immunization Testosterone, Free/Total Today R53.83 - Other fatigue Complete Blood Count Auto Diff Today D58.2 - Other hemoglobinopathies IRON PROFILE Today D58.2 - Other hemoglobinopathies Vitamin B12 and Folate Today R53.83 - Other fatigue
[2024-07-18 14:27] VITALS: BP 118/80; BMI 37.8
== END 2024-07-18 14:56 | disposition home or self-care (01) ==
LOC: HO.HMCH 14:22
PROVIDERS: PCP Internal Medicine; Visit Provider Internal Medicine
DX: Z00.00 Encounter for general adult medical examination without abnormal findings (principal); F33.0 Major depressive disorder, recurrent, mild; Z23 Encounter for immunization

== ENCOUNTER → 2024-07-18 14:22 | Outpatient (BNVA) | payer OTHER, SELFPAY | PROVIDERS: PCP Internal Medicine; Visit Provider Internal Medicine | DX: Z00.00 Encounter for general adult medical examination without abnormal findings (principal); Z23 Encounter for immunization; F33.0 Major depressive disorder, recurrent, mild | CPT/HCPCS: 90471; 90656; 96127; 99395 ==

== ENCOUNTER 2024-07-19 12:56 | Outpatient (REF) | payer OTHER, SELFPAY ==
[2024-07-19 13:41] LABS: MANUAL DIFF FLAG NO
[2024-07-19 14:30] LABS: Basophils Absolute Auto 0.1 X10*3/uL (0.0-0.2); Basophils Percent Auto 0.8 % (0-2); Eosinophils Absolute Auto 0.1 X10*3/uL (0.0-0.4); Hematocrit 48.6 % (42.0-52.0); Imm Gran Abs Auto 0.04 X10*3/uL (0.00-0.03); Imm Gran Pct Auto 0.7 % (0.0-0.4); Lymphocytes Absolute Auto 1.6 X10*3/uL (1.2-4.9); Lymphocytes Percent Auto 25.7 % (20-40); Mean Corpuscular HGB Conc 32.9 g/dl (31.0-36.0); Mean Platelet Volume 11.3 fL (9.4-12.4); Monocytes Absolute Auto 0.8 X10*3/uL (0.1-1.2); Monocytes Percent Auto 13.1 % (2-11); Neutrophils Absolute Auto 3.5 x10*3/uL (2.0-8.3); Neutrophils Percent Auto 57.7 % (45-73); Platelet Count 181 X10*3/uL (160-400); Red Blood Count 5.93 X10*6/uL (4.60-5.80); Red Cell Distribution Width 12.2 % (11.0-16.0)
[2024-07-19 15:07] LABS: Alanine Aminotransferase 32 U/L (0-40); Albumin Level 4.6 g/dL (3.5-5.0); Alkaline Phosphatase 52 U/L (39-117); Anion Gap 14 (12-20); Aspartate Amino Transferase 26 U/L (5-37); Bilirubin Total 0.6 mg/dL (0.0-1.0); Blood Urea Nitrogen 18 mg/dL (9-16); Carbon Dioxide 28 mmol/L (22-29); Chloride 103 mmol/L (96-108); Cholesterol 177 mg/dL (<200); Estimated Glomerular Filt Rate > 60; Glucose Fasting 87 mg/dL (60-99); HDL Cholesterol 47 mg/dL (>40); Iron 112 mcg/dL (45-160); LDL Cholesterol Calculated 105 mg/dL (<100); Percent Iron Saturation 37 % (15-50); Potassium 4.6 mmol/L (3.3-5.1); Sodium 140 mmol/L (135-145); Total Iron Binding Capacity 302 mcg/dL (228-428); Total Protein 7.6 g/dL (6.5-8.0); Triglycerides 125 mg/dL (<150); Unsaturated Iron Binding 190 ug/dL
[2024-07-19 15:23] LABS: Vitamin D 25-OH Total 40.6 ng/mL (>30)
[2024-07-19 15:32] LABS: Folate 12.9 ng/mL (> or = 4.0); Vitamin B12 966 pg/mL (200-900)
[2024-07-26 12:05] LABS: Testosterone, Total 367 ng/dL (250-1100)
== END 2024-07-19 12:57 | disposition home or self-care (01) ==
LOC: HO.LAB 12:56
PROVIDERS: PCP Internal Medicine; Visit Provider Internal Medicine
DX: Z00.00 Encounter for general adult medical examination without abnormal findings (principal); R53.83 Other fatigue; D58.2 Other hemoglobinopathies
CPT/HCPCS: 36415; 80053; 80061; 82306; 82607; 82746; 83540; 84402; 84403; 85025

== ENCOUNTER 2024-09-13 14:19 | Outpatient (REF) | payer OTHER, SELFPAY ==
[2024-09-14 11:11] LABS: Influenza A PCR NEGATIVE (Negative); Influenza B PCR NEGATIVE (Negative); Resp Syncy Virus RNA Qual PCR NEGATIVE (Negative); SARS COV2 PCR INHOUSE NEGATIVE (Negative)
== END 2024-09-13 14:20 | disposition home or self-care (01) ==
LOC: HO.LAB 14:19
PROVIDERS: Physician Assistant; PCP Internal Medicine
DX: J06.9 Acute upper respiratory infection, unspecified (principal); J18.9 Pneumonia, unspecified organism
CPT/HCPCS: 0241U; 99212

== ENCOUNTER 2024-09-13 14:19 | Outpatient (AMB) | payer OTHER, SELFPAY ==
--- NOTE | 2024-09-13 15:42 | AM.OFFWIN_ITS ---
Intake Vital Signs 09/13/24 15:43 Height 6 ft Weight 278 lb BMI 37.7 BP 120/78 Blood Pressure Location Rt brachial Position Sitting Pulse 99 Pulse Source Pulse Oximeter Temp 98.7 F Temp Source Oral Pulse Oximetry (%) 97 Oxygen Delivery Method Room Air Intake Visit Reasons: EP flu symptoms Intake Note: Patient here for head congestion and eye crust that has been present for 10 days. Patient Tobacco Use Status: Never used Tobacco Allergies barium sulfate [ORAL CONTRAST] Allergy (Intermediate, Verified 09/13/24 15:44) VOMITING RED. Iodinated Contrast Media [IV DYE, IODINE CONTAINING CONTRAST ] Allergy (Intermediate, Verified 09/13/24 15:44) VOMITING Do you need a note to return to daycare/school/sports/work: No HPI HPI Comments History of Present Illness Details History - The patient is a 28-year-old male pres enting with persistent upper respiratory symptoms. He reports congestion all over the head for 10 days with sinus pressure around eyes and nose, ear stuffiness, and severe sore throat hindering sleep due to coughing fits. He describes having dark yellow sputum in large quantities, primarily in the mornings. Tests for influenza, COVID-19, and Respiratory Syncytial Virus (RSV) have been initiated to rule out common viral infections. No shortness of breath or wheezing was noted, and no history of asthma or COPD is present. He took acetaminophen and Theraflu with limited improvement. The patient?s is experiencing similar symptoms. Physical Exam General: Cooperative, healthy appearing, comfortable and no acute distress Orientation/consciousness: Patient oriented x3 Limitations: No limitations Head: Normal to inspection Ears: Hearing grossly normal bilaterally, external ears normal and TM's normal bilaterally, Nose: Normal external nose present, Normal nares present and No nasal discharge present Face and sinus: Normal facial exam and Sinuses tender to pressure Mouth: Normal oral and palatal mucosa present and moist mucous membranes Throat: Yes tonsils normal, Yes uvula midline. Posterior oropharynx erythema, no exudates noted Eyes: Appearance normal, both eyes and all related structures Neck: Normal visual inspection Respiratory: Clear to auscultation bilaterally. Normal respiratory effort, able to speak in complete sentences, Actively coughing, no respiratory distress, not tachypneic, no tripod positioning and no use of accessory muscles Cardiovascular: Regular rate and rhythm. Normal S1 and S2 Skin: No rashes or lesions noted Neuro: Patient oriented x3 Extremities: Normal to inspection and Yes no clubbing, cyanosis or edema PFSH Medical History Varicocele AKBAR (generalized anxiety disorder) Mild recurrent major depression Snoring Morbid obesity Otitis externa Insomnia Eczema Asperger syndrome Depression with anxiety Surgical History History of lymph node excision History of hernia repair Family History Father Essential hypertension Mother Essential hypertension Sister Healthy adult Paternal Grandmother Stroke Social History Housing: Apartment Alcohol intake: never Patient Tobacco Use Status: Never used Tobacco e-Cigarette/Vaping Use: Never Used Second Hand Smoke Exposure: No service: No Current occupational status: unemployed Cognitive needs: No Hearing needs: No Vision needs: No Review of Systems Const All systems reviewed & are unremarkable except as noted in HPI and below Physical Exam Vital Signs: Last Vital Signs Temp 98.7 F 09/13/24 15:43 Pulse 99 09/13/24 15:43 BP 120/78 09/13/24 15:43 Pulse Ox 97 09/13/24 15:43 Oxygen Delivery Method Room Air 09/13/24 15:43 BMI result Body Mass Index 37.7 Assessment & Plan Assessment & Plan (1) Atypical pneumonia: Code(s): J18.9 - Pneumonia, unspecified organism Plan: The patient presenting with symptoms of clinical atypical pneumonia, will undergo testing for influenza, COVID-19, and RSV. Pending results, treatment involves doxycycline to address suspected bacterial atypical pneumonia and Tessalon Perles for nocturnal cough relief. The patient is advised to delay antibiotic pickup until viral infection confirmation is complete, given antibiotics' ineffectiveness against viral causes. Recommendations include adequate hydration, rest, and continuing symptomatic support with Theraflu and [id number] medications. Patient was informed and verbally consented to the use of an ambient scribe for clinic note documentation during this visit Orders: Orders SARS-CoV2/FLU/RSV Today J06.9 - Acute upper respiratory infection, unspecified Medications: New benzonatate 200 mg PO TID PRN 14 caps 0RF cough doxycycline hyclate 100 mg PO BID 10 tabs 0RF Coding Level of Care Code Est Pt Level 3 (86775) Diagnoses Atypical pneumonia J18.9
[2024-09-13 15:43] VITALS: BP 120/78; PULSE 99; TEMP 37.1; O2SAT 97; BMI 37.7
== END 2024-09-13 16:21 | disposition home or self-care (01) ==
PROVIDERS: PCP Internal Medicine; Visit Provider Physician Assistant
DX: J18.9 Pneumonia, unspecified organism (principal)

== ENCOUNTER 2024-09-27 14:24 | Outpatient (REF) | payer OTHER, SELFPAY ==
--- NOTE | ~2024-09-27 | XR_ITS ---
EXAMINATION: XR CHEST CLINICAL INFORMATION: J06.9 - Acute upper respiratory infection, unspecified COMPARISON: 06/17/2023. TECHNIQUE: 2 views of the chest were obtained. FINDINGS: The cardiac, hilar, and mediastinal contours are normal. The lungs are clear bilaterally. There is no pneumothorax or pleural effusion. There is no focal osseous or soft tissue abnormality. XR/XR chest 2V IMPRESSION: Normal chest. Electronically signed by: Víctor Avila MD 09/27/2024 04:34 PM [facility]
== END 2024-09-27 14:25 | disposition home or self-care (01) ==
LOC: HO.HMGCX 14:24
PROVIDERS: PCP Internal Medicine; Visit Provider Nurse Practitioner Family
DX: J06.9 Acute upper respiratory infection, unspecified (principal)
CPT/HCPCS: 71046; 99212

== ENCOUNTER 2024-09-27 14:24 | Outpatient (AMB) | payer OTHER, SELFPAY ==
[2024-09-27 15:00] VITALS: BP 120/70; PULSE 87; O2SAT 97; BMI 37.7
--- NOTE | 2024-09-27 15:00 | AM.OFFWIN_ITS ---
Intake Vital Signs 09/27/24 15:00 Height 6 ft Weight 278 lb BMI 37.7 BP 120/70 Blood Pressure Location Lt brachial Position Sitting Pulse 87 Pulse Source Pulse Oximeter Pulse Oximetry (%) 97 Oxygen Delivery Method Room Air Intake Visit Reasons: EP itchy throat, phlegm, congestion Intake Note: Pt is here today for a walk in visit. Pt c/o congestion cough a lot of mucus. pt states that he was seen 2 weeks ago and he finished the medications and was feeling better but now the symptoms are back. Patient Tobacco Use Status: Never used Tobacco Allergies barium sulfate [ORAL CONTRAST] Allergy (Intermediate, Verified 09/27/24 15:03) VOMITING RED. Iodinated Contrast Media [IV DYE, IODINE CONTAINING CONTRAST ] Allergy (Intermediate, Verified 09/27/24 15:03) VOMITING HPI HPI Comments History of Present Illness Details 28 y/o male patient who presents to the walk in clinic with c/o persistent cough, chest tightness and nasal congestion on/off since the beginning of this month. He was evaluated and treated here Sep 16 with Doxy for 5 days and Tessalon Pearls with very minimal improvement. Reports completing the Abx course treatment Approx 7 days ago, but no improvement. Reports coughing mucous. [facility] Medical History Varicocele AKBAR (generalized anxiety disorder) Mild recurrent major depression Snoring Morbid obesity Otitis externa Insomnia Eczema Asperger syndrome Depression with anxiety Surgical History History of lymph node excision History of hernia repair Family History Father Essential hypertension Mother Essential hypertension Sister Healthy adult Paternal Grandmother Stroke Social History Housing: Apartment Alcohol intake: never Patient Tobacco Use Status: Never used Tobacco e-Cigarette/Vaping Use: Never Used Second Hand Smoke Exposure: No service: No Current occupational status: unemployed Cognitive needs: No Hearing needs: No Vision needs: No Physical Exam Vital Signs: Last Vital Signs Pulse 87 09/27/24 15:00 BP 120/70 09/27/24 15:00 Pulse Ox 97 09/27/24 15:00 Oxygen Delivery Method Room Air 09/27/24 15:00 BMI result Body Mass Index 37.7 Const General: cooperative and no acute distress Nutritional Appearance: obese Orientation/consciousness: patient oriented x3 HEENT Head: Yes normocephalic Ears: external ears normal and TM abnormal with fluid behind the TM General nose exam: Abnormal mucous membranes and turbinates present boggy and erythematous Face and sinus: Yes sinuses nontender Mouth: moist mucous membranes Throat: Yes posterior oropharynx normal Resp Effort & Inspection: normal respiratory effort and able to speak in complete sentences Auscultation: clear to auscultation bilaterally, no crackles, no rales, no rhonchi and no wheezes Cardio Heart sounds: S1 normal heart sound present and S2 normal heart sound present Neuro General: patient oriented x3 Assessment & Plan Assessment & Plan (1) URI (upper respiratory infection): Code(s): J06.9 - Acute upper respiratory infection, unspecified Qualifiers: URI type: unspecified URI Qualified Code(s): J06.9 - Acute upper respiratory infection, unspecified Plan: Ordered Chest Xray Ordered Singulair at night time. Orders: Orders XR chest 2V Today J06.9 - Acute upper respiratory infection, unspecified Medications: New fluticasone furoate 27.5 mcg/actuation (Flonase Sensimist) into each nostril 1 spray intranasal DAILY 9.1 mL 0RF J06.9 - Acute upper respiratory infection, unspecified montelukast 10 mg PO BEDTIME 30 tabs 0RF J06.9 - Acute upper respiratory infection, unspecified Coding Level of Care Code Est Pt Level 4 (23962) Diagnoses Upper respiratory tract infection, unspecified type J06.9 URI type: unspecified URI Time Spent (min) 20
== END 2024-09-27 16:55 | disposition home or self-care (01) ==
PROVIDERS: PCP Internal Medicine; Visit Provider Nurse Practitioner Family
DX: J06.9 Acute upper respiratory infection, unspecified (principal)

== ENCOUNTER → 2024-09-27 15:50 | Outpatient (BNV) | payer OTHER, SELFPAY | PROVIDERS: PCP Internal Medicine; Visit Provider Radiology Diagnostic Radiology | DX: J06.9 Acute upper respiratory infection, unspecified (principal) | CPT/HCPCS: 71046 ==

== ENCOUNTER 2024-10-18 05:24 | Emergency (ER) | payer OTHER, SELFPAY ==
--- NOTE | ~2024-10-18 | CT_ITS ---
EXAMINATION: CT ABDOMEN AND PELVIS WITHOUT CONTRAST CLINICAL INFORMATION: Abdominal pain, leukocytosis. COMPARISON: 08/30/2011. TECHNIQUE: Multidetector volumetric imaging was performed from the superior aspect of the liver through the pubic symphysis. Sagittal and coronal reformatted images were obtained on the technologist's workstation. This CT examination was performed using dose optimization techniques as appropriate, variously including the following: *Automated exposure control *Adjustment of mA and/or kV according to patient size (this includes techniques or standardized protocols for targeted exams where dose is matched to indication/reason for exam; i.e. extremities or head) *Use of iterative reconstruction technique FINDINGS: LUNG BASES: Lung bases are clear. No effusions. Normal heart size. Small type I hiatus hernia. LIVER, GALLBLADDER, AND BILIARY TREE: Liver is normal in size with mild decreased attenuation consistent with mild diffuse fatty infiltration. There is no focal lesion on this unenhanced CT exam. No biliary dilatation. The gallbladder is unremarkable with no evidence of radiopaque gallstones, gallbladder wall thickening, or obvious pericholecystic inflammatory changes. PANCREAS: Unremarkable. SPLEEN: Unremarkable. ADRENAL GLANDS: Unremarkable. KIDNEYS AND URETERS: The kidneys are normal in size, shape, and attenuation. No hydronephrosis, hydroureter, or calculi seen. No perinephric stranding. BLADDER: Unremarkable. GASTROINTESTINAL TRACT: There is a loop of mid ileum in the mid pelvic region just above the bladder, which demonstrates possible subtle wall thickening minimal associated hyperemia. A segmental enteritis is suggested but not definitive (series 3, images 73-78; series 5, images 35-50). Evaluation is hindered by lack of IV contrast. The large bowel and rectum are unremarkable. No wall thickening or inflammatory changes. The appendix is normal. Small type I hiatus hernia. ABDOMINAL WALL: No significant hernia is appreciated. LYMPH NODES: Increased number of small lymph nodes throughout the small bowel mesentery, presumably reactive in nature. No pathologic adenopathy by size criteria. VASCULAR: Unremarkable. PELVIC VISCERA: The prostate and seminal vesicles are unremarkable. OSSEOUS STRUCTURES: Normal in appearance. Small bone island in the posterior medial left ilium. No SI joint pathology. CT/CT abdomen pelvis wo IV con IMPRESSION: Examination limited or bowel pathology due to lack of IV and oral contrast. 1. Suggestion of subtle wall thickening of a short segment of mid ileum, with possible mild associated hyperemia. This is a soft call. A segmental enteritis is possible, but not definitive. IV contrast would have been helpful with this evaluation. 2. Normal appendix. 3. Increased number of small shotty lymph nodes throughout the small bowel mesentery, presumably reactive. Mesenteric adenitis is also a consideration. Electronically signed by: Víctor Avila MD 10/18/2024 08:46 AM LUPE
[2024-10-18 05:27] VITALS: BP 125/69; PULSE 113; RESP 18; TEMP 36.3; O2SAT 96; BMI 37.1
[2024-10-18] MEDS: 0.9 % Sodium Chloride 1,000 ML 999 ML IV ×2 (06:07→08:04)
[2024-10-18] MEDS: ondansetron HCL 4 MG/2 ML VIAL IVPUSH (06:07)
[2024-10-18] MEDS: Loperamide HCl 2 MG CAPSULE 4 MG PO (06:07)
--- NOTE | 2024-10-18 06:07 | ED.ABDPAIN ---
HPI - Abdominal Pain General Chief Complaint: Abdominal Pain Stated Complaint: n/v/d Time Seen by Provider: 10/18/24 06:01 Source: patient Mode of arrival: ambulatory Limitations: no limitations History of Present Illness ED Provider: HPI narrative: Patient has been having nausea vomiting diarrhea for last 3 hours vomited about 6 times and had 3 times watery stool with diffuse abdominal cramps no fever no chills no recent antibiotic intake no recent bad food intake Related Data Home Medications ?Medication ?Instructions ?Recorded ?Confirmed lorazepam 1 mg tablet (Ativan) 1 mg PO BID PRN 10/15/20 07/18/24 escitalopram oxalate 10 mg tablet 15 mg PO BEDTIME 12/17/21 07/18/24 trazodone 100 mg tablet 100 mg PO BEDTIME 12/17/21 07/18/24 Previous Rx's ?Medication ?Instructions ?Recorded ibuprofen 600 mg tablet 600 mg PO Q8H PRN pain 10 days #30 12/21/21 tabs bupropion HCl 150 mg 24 hr tablet, 150 mg PO QAM 30 days #30 tabs 03/31/22 extended release hydrocortisone 1 % topical cream 1 appl topical TID PRN skin 03/09/23 (Anti-Itch (hydrocortisone)) irritation 30 days #28.4 grams sumatriptan succinate 50 mg tablet 50 mg PO Q2-4H PRN migraine 05/13/24 headache 30 days #9 tabs fluticasone furoate 27.5 1 spray intranasal DAILY #9.1 mL 09/27/24 mcg/actuation nasal spray,suspension (Flonase Sensimist) montelukast 10 mg tablet 10 mg PO BEDTIME #30 tabs 09/27/24 Allergies Allergy/AdvReac Type Severity Reaction Status Date / Time barium sulfate Allergy Intermediate VOMITING Verified 10/18/24 05:30 [ORAL CONTRAST] RED. Iodinated Contrast Media Allergy Intermediate VOMITING Verified 10/18/24 05:30 [IV DYE, IODINE CONTAINING CONTRAST ] Review of Systems Review of Systems Yes all other systems are reviewed and are negative PMFSH Past Medical History Medical History Varicocele AKBAR (generalized anxiety disorder) Mild recurrent major depression Snoring Morbid obesity Otitis externa Insomnia Eczema Asperger syndrome Depression with anxiety Surgical History History of lymph node excision History of hernia repair Family History Family History Father Essential hypertension Mother Essential hypertension Sister Healthy adult Paternal Grandmother Stroke Social History Social History Housing: Apartment Alcohol intake: never Patient Tobacco Use Status: Never used Tobacco Smoked in Last 30 Days: No e-Cigarette/Vaping Use: Never Used Second Hand Smoke Exposure: No Use of substances other than those prescribed or required for medical reasons: No Advance Directives: No Advance Directives Information Provided: No service: No Current occupational status: unemployed Cognitive needs: No Hearing needs: No Vision needs: No Physical Exam ED Vital Signs: Vital Signs - 24 hr 10/18/24 05:27 Temperature 97.4 F Pulse Rate 113 H Respiratory Rate 18 Blood Pressure 125/69 Pulse Oximetry 96 Oxygen Delivery Method Room Air BMI result Body Mass Index 37.1 Appearance: Alert. Oriented X3. Actively vomiting Eyes: PERRLA, No Nystagmus ENT: Pharynx normal. Oral Mucosa moist Neck: Normal inspection. Neck supple. CVS: Normal heart rate and rhythm. Pulses normal. Respiratory: No respiratory distress. Equal air entry bilateral, no wheezing/rales/rhonchi Abdomen: Soft and diffuse discomfort no rebound tenderness or guarding Bowel sounds are present, no mass palpable, no CVA tenderness Skin: Skin warm and dry. Normal skin color. Normal skin turgor. Extremities: No lower extremity edema. No calf tenderness Neuro: Oriented X 3. No motor deficit. Medical Decision Making Medical Decision Making [facility] Narrative: Patient has acute gastroenteritis likely viral/norovirus will give IV fluids supportive treatment. Patient does have leukocytosis from dehydration likely patient does have deep tenderness right lower quadrant will do CT abdomen rule out appendicitis which is unlikely Differential Diagnosis Differential Diagnoses: The differential diagnosis associated with the presentation includes Gastroenteritis/colitis/pancreatitis/appendicitis Lab Data 10/18/24 06:03 10/18/24 06:03 Labs: Lab Results 10/18/24 Range/Units 06:03 WBC 18.4 H (4.8-10.8) X10*3/uL RBC 6.57 H (4.60-5.80) X10*6/uL Hgb 17.9 (14.0-18.0) g/dl Hct 53.7 H (42.0-52.0) % MCV 81.7 (80.0-98.0) fL MCH 27.2 (27.0-33.0) pg MCHC 33.3 (31.0-36.0) g/dl RDW 13.4 (11.0-16.0) % Plt Count 221 (160-400) X10*3/uL MPV 10.8 (9.4-12.4) fL Sodium 138 (135-145) mmol/L Potassium 4.6 (3.3-5.1) mmol/L Chloride 107 (96-108) mmol/L Carbon Dioxide 18 L (22-29) mmol/L Anion Gap 18 (12-20) BUN 27 H (9-16) mg/dL Creatinine 0.81 (0.5-1.4) mg/dL Estim Creat Clear Calc 184.7 Estimated GFR > 60 Random Glucose 136 H (60-115) mg/dL Calcium 10.3 H (8.4-10.2) mg/dL Total Bilirubin 0.5 (0.0-1.0) mg/dL AST 35 (5-37) U/L ALT 31 (0-40) U/L Alkaline Phosphatase 54 (39-117) U/L Total Protein 8.7 H (6.5-8.0) g/dL Albumin 4.9 (3.5-5.0) g/dL Influenza Type A (PCR) NEGATIVE (Negative) Influenza Type B (PCR) NEGATIVE (Negative) RSV RNA Qual (PCR) NEGATIVE (Negative) SARS-CoV-2 RNA (RT-PCR) NEGATIVE (Negative) Medications Administered Generic Name Dose Route Start Last Admin Trade Name Freq PRN Reason Stop Dose Admin Sodium Chloride 1,000 mls @ 999 mls/hr 10/18/24 05:59 10/18/24 06:07 Ns IV 10/18/24 06:59 999 mls/hr .Q1H1M ONE Administration Discontinued Medications Generic Name Dose Route Start Last Admin Trade Name Freq PRN Reason Stop Dose Admin Loperamide HCl 4 mg 10/18/24 06:00 10/18/24 06:07 Loperamide Hcl 2 Mg Capsule PO 10/18/24 06:01 4 mg ONCE ONE Administration Ondansetron HCl 4 mg 10/18/24 06:00 10/18/24 06:07 Ondansetron Hcl 4 Mg/2 Ml Vial IVPUSH 10/18/24 06:01 4 mg ONCE ONE Administration Discharge Plan Discharge Clinical Impression: Gastroenteritis Patient Disposition: Still a Patient Prescriptions: No Action ibuprofen 600 mg tablet 600 mg PO Q8H PRN (Reason: pain) 10 Days Qty: 30 0RF bupropion HCl 150 mg tablet extended release 24 hr 150 mg PO QAM 30 Days Qty: 30 0RF sumatriptan succinate 50 mg tablet 50 mg PO Q2-4H PRN (Reason: migraine headache) 30 Days Qty: 9 2RF Rx Instructions: do not exceed 4 doses per 24 hrs lorazepam [Ativan] 1 mg tablet 1 mg PO BID PRN hydrocortisone [Anti-Itch (HC)] 1 % cream 1 appl topical TID PRN (Reason: skin irritation) 30 Days Qty: 28.4 1RF escitalopram oxalate 10 mg tablet 15 mg PO BEDTIME trazodone 100 mg tablet 100 mg PO BEDTIME montelukast 10 mg tablet 10 mg PO BEDTIME Qty: 30 0RF Flonase Sensimist 27.5 mcg/actuation spray,suspension 1 spray intranasal DAILY Qty: 9.1 0RF Rx Instructions: into each nostril Print Language: [place]
[2024-10-18 06:11] LABS: Basophils Absolute Auto 0.1 X10*3/uL (0.0-0.2); Basophils Percent Auto 0.4 % (0-2); Eosinophils Absolute Auto 0.1 X10*3/uL (0.0-0.4); Eosinophils Percent Auto 0.5 % (0-4); Hematocrit 53.7 % (42.0-52.0); Hemoglobin 17.9 g/dl (14.0-18.0); Imm Gran Abs Auto 0.11 X10*3/uL (0.00-0.03); Imm Gran Pct Auto 0.6 % (0.0-0.4); Lymphocytes Absolute Auto 1.3 X10*3/uL (1.2-4.9); Lymphocytes Percent Auto 6.8 % (20-40); MANUAL DIFF FLAG SCAN; Mean Corpuscular HGB Conc 33.3 g/dl (31.0-36.0); Mean Corpuscular Hemoglobin 27.2 pg (27.0-33.0); Mean Corpuscular Volume 81.7 fL (80.0-98.0); Mean Platelet Volume 10.8 fL (9.4-12.4); Monocytes Absolute Auto 1.6 X10*3/uL (0.1-1.2); Monocytes Percent Auto 8.7 % (2-11); Neutrophils Absolute Auto 15.3 x10*3/uL (2.0-8.3); Platelet Count 221 X10*3/uL (160-400); Red Blood Count 6.57 X10*6/uL (4.60-5.80); Red Cell Distribution Width 13.4 % (11.0-16.0); SCAN SMEAR FLAG 1; White Blood Count 18.4 X10*3/uL (4.8-10.8)
--- OUTSIDE RECORDS SUMMARY | 2024-10-18 06:11 | XMS_ITS | Encounter Summary ---
Author Organization [facility] Address [address] [place] [phone] Phone Care Team Providers Care Lockstitch Sleeve Maker Name Role Phone Unavailable Primary Care Provider Unavailabl e Encounter Details Date Type Department Care Team (Late st Contact Info) Description 11/17/2010 Documentation [facility] [address] [place] [address] Family Medicine, Physician [address] [place] [address] Social History Tobacco Use Types Packs/Day Years Used Date Smoking Tobacco: Never Assessed Sex and Gender Information Value Date Recorded Sex Assigned at Not on file Legal Sex Male 5:07 PM EDT Gender Identity Not on file Sexual Orientation Not on file documented as of this encounter Plan of Treatment Not on file documented as of this encounter Visit Diagnoses Not on filedocumented in this encounter
--- OUTSIDE RECORDS SUMMARY | 2024-10-18 06:11 | XMS_ITS | Encounter Summary ---
Author Organization [facility] Address [address] [place] [phone] Phone Care Team Providers Care Cellophane Bath Mixer Name Role Phone Unavailable Primary Care Provider Unavailabl e Reason for Visit * Reason Comments Med Refill Encounter Details Date Type Department Care Team (Late st Contact Info) Description 06/20/2019 Refill [facility] - [address] [address] Salazar De Leon MD Seasonal allergic rhinitis Social History Tobacco Use Types Packs/Day Years Used Date Smoking Tobacco: Never Smokeless Tobacco: Never Comments:Never smoker Alcohol Use Standard Drinks/Week Comments Never 0 (1 standard drink = 0.6 oz pur e alcohol) Sex and Gender Information Value Date Recorded Sex Assigned at Not on file Legal Sex Male 5:07 PM EDT Gender Identity Not on file Sexual Orientation Not on file documented as of this encounter Miscellaneous Notes * Telephone Encounter - Giselle Hickman LPN - 06/21/2019 10:[address] De Leon asking that I call pt to get current med list. VM left asking pt to call. Notes pt is now 23 09/13 and was sent 22 yr letter 2 yrs ago. He was seen in our office 03/08 for PE. I refused the request from pharm asking they have pt call. will ask pt if he is connected with a newPCP. EH * Telephone Encounter - Perri Fregoso LPN - 06/20/2019 7:21 AM EDT Refill request for Flonase. Last PE 02/28/JOD documented in this encounter Plan of Treatment Not on file documented as of this encounter Visit Diagnoses Diagnosis Seasonal allergic rhinitis Allergic rhinitis, cause unspecified documented in this encounter
--- OUTSIDE RECORDS SUMMARY | 2024-10-18 06:11 | XMS_ITS | Encounter Summary ---
Author Organization [facility] Address [address] [place] [phone] Phone Care Team Providers Care Element Burner Name Role Phone Unavailable Primary Care Provider Unavailabl e Encounter Details Date Type Department Care Team (Late st Contact Info) Description 01/07/2011 Documentation [facility] [address] [place] [address] Family Medicine, Physician [address] [place] [address] Social History Tobacco Use Types Packs/Day Years [...]
--- OUTSIDE RECORDS SUMMARY | 2024-10-18 06:11 | XMS_ITS | Clinical Summary ---
Author Organization [facility] Address [address] [place] [address] Phone Care Team Providers Care Mid Wife Name Role Phone Unavailable Primary Care Provider Unavailabl e Allergies Active Allergy Reactions Criticality Noted Date Comments Environmental 12/08/2017 MapPOWWOW Medications traZODone 150 MG tablet Take 150 mg by mouth nightly as needed. 2 8 Active traZODone 100 MG tablet TAKE 1 TABLET BY MOUTH AT BEDTIME TAKE WITH THE 150MG TABLET 0 8 Active FLUoxetine 20 MG capsule TAKE 2 CAPSULE BY MOUTH ONCE A DAY TAKE AT BEDTIME 3 8 Active cetirizine 10 MG tablet Take 10 mg by mouth daily. Active acetaminophen 325 MG tabletIndicatio ns:Acute right-sided low back pain without sciatica Take 2 tablets (650 mg total) by mouth every 4 (four) hours as needed for mild pain, moderate pain or fever. 30 tablet 9 Active Humidifier miscIndications :Cough USE DIRECTED FOR A COLD 1 each 9 Active Additional Information Patient not taking.Reported on 01/04/2019 LORazepam 1 MG tablet TOME MIHCELLE TABLETA POR V?A ORAL DEMARCUS VECES AL D?A 3 9 Active ADDERALL XR 10 MG 24 hr capsule TOME MICHELLE C?PSULA TODOS LOS D? EN LA MA?JUAN ANTONIO 0 9 Active fluticasone 50 MCG/ACT nasal sprayIndication s:Seasonal allergic rhinitis 1 [place] in each nostril q d prn allergies 1 Units 2 9 Active Active Problems Problem Noted Date Diagnosed Date Nonintractable headache 03/08/2019 Attention deficit hyperactivity disorder (ADHD) 03/08/2019 Anxiety 03/08/2019 Overweight 06/03/2017 Vision abnormalities 06/03/2017 Allergic rhinitis 06/03/2017 Autism 06/03/2017 Sleep disorder 06/03/2017 Seborrhea 06/03/2017 Atopic dermatitis 06/03/2017 Scoliosis 06/03/2017 Resolved Problems Problem Noted Date Diagnosed Date Resolved Date Other atopic dermatitis 12/08/2017 07/0 01/2018 Folliculitis 09/06/2017 11/29/2017 Headache 06/03/2017 11/29/2017 Acne vulgaris 06/03/2017 11/29/2017 Adolescent behavior problem 06/03/2017 03/08/2019 Constipation 06/03/2017 11/29/2017 RAD (reactive airway disease) 06/03/2017 11/29/2017 Chest pain 06/03/2017 11/29/2017 Immunizations Immunization Administration Dates Next Due DTaP 11/08/2000, 8,04/09/1997,02/01,1996 HPV Vaccine 9 Valent 06/19/2015 HPV, Quadrivalent 06/06/2014,02/28/2014,03/12/20 10 Hep A, ped/adol 09/19/2014,02/28/2014 Hep B, ped/adol 04/09/1997,02/01/1997,1996 Hib (HbOC) 12/31/1997, 7,02/01/1997,11/30 IPV 11/08/2000, 7,02/01/1997,11/30 Influenza Split 05/18/2012,07/12/2011,05/05/2010 Influenza, injectable, quadrivalent 07/02/2016 Influenza, injectable, quadr ivalent, preservative free 06/16/2018,06/03/2017,05/29/2015,06/06,06/06/2013 MMR 11/08/2000,10/15/1997 Meningococcal Conj (Menactra) MCV4P 09/19/2014,0 10/23/2007 Td (adult) (MBL), 2 Lf tetan us toxoid, PF, adsorbed 06/03/2017 Tdap 10/23/2007 Varicella 03/12/2010,11/28/2000 Family History Medical History Relation Name Comments No Known Problems Brother 1 parul No Known Problems Brother 2 lula Hypertension Father carroll Other Father carroll ADD / ADHD Other Asthma Other Deafness Other Diabetes Other Heart disease (Premature) Other Hyperlipidemia Other Obesity Other No Known Problems Sister 1 génesis No Known Problems Sister 2 duncan Relation Name Status Comments Brother 1 parul Alive Brother 2 lula Alive Father carroll Alive Father: Hyperte nsion /, hypoglycemia Mother zahida Alive Mother: Hyperte nsion / asthma / diabetis sinus Other Family history of Obesity, Family history of Deafness, Family history of Diabetes mellitus, No family history of Sudden , Family history of elevated cholesterol, Family history of ADD/ADHD, Family history of Heart disease, , Family history of Asthma, No family history of Stroke Sister 1 génesis Alive Sister 2 duncan Alive Social History Tobacco Use Types Packs/Day Years Used Date Smoking Tobacco: Never Smokeless Tobacco: Never Comments:Never smoker Alcohol Use Standard Drinks/Week Comments Never 0 (1 standard drink = 0.6 oz pur e alcohol) Sex and Gender Information Value Date Recorded Sex Assigned at Not on file Legal Sex Male 5:07 PM EDT Gender Identity Not on file Sexual Orientation Not on file Last Filed Vital Signs Vital Sign Reading Time Taken Comments Blood Pressure 111/71 03/08/2019 3:15 PM EDT Pulse 91 03/08/2019 3:15 PM EDT Temperature 36.6 ??C (97.8 ??F) 01/04/2019 3:53 PM ED T Respiratory Rate 20 10/26/2018 4:01 PM EST Oxygen Saturation 99% 11/05/2013 12:00 AM EST Inhaled Oxygen Concentration - - Weight 98.4 kg (217 lb) 03/08/2019 3:15 PM EDT Height 181 cm (5' 11.25 ) 03/08/2019 3:15 PM EDT Body Mass Index 30.05 03/08/2019 3:15 PM EDT Plan of Treatment Health Maintenance Due Date Last Done Comments Varicella Vaccines (2 of 2 - 13+ 2-dose series) 04/09/2010 03/12/2010, 11/28/2000 Consider Men B Vaccine (1 of 2 - Bexsero 2-dose series) 2012 Influenza Vaccines (#1) 2024 06/16/20 18, 06/03/2017, 07/02/2016, Additional history exists COVID-19 Vaccine (2023-25 season) 2024 DTaP,Tdap,and Td Vaccines (8 - Td or Tdap) 06/03/2027 06/03/2017, 10/23/2007, 11/08/2000, Additional history exists Hepatitis B Vaccines Completed 04/09/1997, 02/01/1997, 1996 HIB Vaccines Completed 12/31/1997, 03/13, 02/01/1997, Additional history exists IPV Vaccines Completed 11/08/2000, 03/13, 02/01/1997, Additional history exists MMR Vaccines Completed 11/08/2000, 10/15/1997 Hepatitis A Vaccines Completed 09/19/2014, 02/29/20 14 Meningococcal Vaccine Completed 09/19/2014, 008 HPV Vaccines Completed 06/19/2015, 05/14, 02/28/2014, Additional history exists Men B Vaccine Aged Out No longer elig ible based on patient's age to complete this topic Pneumococcal Vaccine Aged Out No long er eligible based on patient's age to complete this topic Insurance [facility] [place] [id number]
--- OUTSIDE RECORDS SUMMARY | 2024-10-18 06:11 | XMS_ITS | Encounter Summary ---
Author Organization [facility] Address [address] [place] [phone] Phone Care Team Providers Care Human Resources Admin Name Role Phone Unavailable Primary Care Provider Unavailabl e Encounter Details Date Type Department Care Team (Late st Contact Info) Description 03/27/2015 Documentation [facility] [address] [place] [address] Family Medicine, Physician [address] [place] [address] Social History Tobacco Use Types Packs/Day Years [...]
--- OUTSIDE RECORDS SUMMARY | 2024-10-18 06:11 | XMS_ITS | Encounter Summary ---
Author Organization [facility] Address [address] [place] [address] Phone Care Team Providers Care District Plant Superintendent Name Role Phone Unavailable Primary Care Provider Unavailabl e Encounter Details Date Type Department Care Team (Late st Contact Info) Description 04/28/2017 Conversion Encounter [facility] - [address] [phone] Social History Tobacco Use Types Packs/Day Years Used Date Smoking Tobacco: Never Comments:Never smoker Sex and Gender Information Value Date Recorded Sex Assigned at Not on file Legal Sex Male 5:07 PM EDT Gender Identity Not on file Sexual Orientation Not on file documented as of this encounter Plan of Treatment Not on file documented as of this encounter Visit Diagnoses Not on filedocumented in this encounter
--- OUTSIDE RECORDS SUMMARY | 2024-10-18 06:11 | XMS_ITS | Encounter Summary ---
Author Organization [facility] Address [address] [place] [phone] Phone Care Team Providers Care Photographer Model Name Role Phone Unavailable Primary Care Provider Unavailabl e Encounter Details Date Type Department Care Team (Late st Contact Info) Description 12/14/2016 Documentation [facility] [address] [place] [address] Family Medicine, Physician [address] [place] [address] Social History Tobacco Use Types Packs/Day Years [...]
--- OUTSIDE RECORDS SUMMARY | 2024-10-18 06:11 | XMS_ITS | Encounter Summary ---
Author Organization [facility] Address [address] [place] [phone] Phone Care Team Providers Care Certified Health Education Specialist Name Role Phone Unavailable Primary Care Provider Unavailabl e Encounter Details Date Type Department Care Team (Late st Contact Info) Description 10/01/2015 Documentation [facility] [address] [place] [address] Family Medicine, Physician [address] [place] [address] Social History Tobacco Use Types Packs/Day Years [...]
--- OUTSIDE RECORDS SUMMARY | 2024-10-18 06:11 | XMS_ITS | Encounter Summary ---
Author Organization [facility] Address [address] [place] [address] Phone Care Team Providers Care Paper Mill Superintendent Name Role Phone Unavailable Primary Care Provider Unavailabl e Encounter Details Date Type Department Care Team (Late st Contact Info) Description 07/29/2010 Documentation [facility] [address] [place] [address] Family Medicine, Physician [address] [place] [address] Social History Tobacco Use Types Packs/Day Years [...]
--- OUTSIDE RECORDS SUMMARY | 2024-10-18 06:11 | XMS_ITS | Encounter Summary ---
Author Organization [facility] Address [address] [place] [address] Phone Care Team Providers Care Aoc Director Intelligence Officer Name Role Phone Unavailable Primary Care Provider Unavailabl e Encounter Details Date Type Department Care Team (Late st Contact Info) Description 03/04/2017 Documentation [facility] [address] [place] [address] Family Medicine, Physician [address] [place] [address] Social History Tobacco Use Types Packs/Day Years [...]
--- OUTSIDE RECORDS SUMMARY | 2024-10-18 06:11 | XMS_ITS | Encounter Summary ---
Author Organization [facility] Address [address] [place] [address] Phone Care Team Providers Care Wet Room Worker Name Role Phone Unavailable Primary Care Provider Unavailabl e Encounter Details Date Type Department Care Team (Late st Contact Info) Description 10/25/2014 Documentation [facility] [address] [place] [address] Family Medicine, Physician [address] [place] [address] Social History Tobacco Use Types Packs/Day Years [...]
--- OUTSIDE RECORDS SUMMARY | 2024-10-18 06:11 | XMS_ITS | Encounter Summary ---
Author Organization [facility] Address [address] [place] [address] Phone Care Team Providers Care Hand Bunch Maker Name Role Phone Unavailable Primary Care Provider Unavailabl e Encounter Details Date Type Department Care Team (Late st Contact Info) Description 12/14/2016 Documentation [facility] [address] [place] [address] Family Medicine, Physician [address] [place] [address] Social History Tobacco Use Types Packs/Day Years [...]
--- OUTSIDE RECORDS SUMMARY | 2024-10-18 06:11 | XMS_ITS | Encounter Summary ---
Author Organization [facility] Address [address] [place] [address] Phone Care Team Providers Care Organic Chemist Name Role Phone Unavailable Primary Care Provider Unavailabl e Encounter Details Date Type Department Care Team (Late st Contact Info) Description 09/21/2016 Documentation [facility] [address] [place] [address] Family Medicine, Physician [address] [place] [address] Social History Tobacco Use Types Packs/Day Years [...]
--- OUTSIDE RECORDS SUMMARY | 2024-10-18 06:11 | XMS_ITS | Encounter Summary ---
Author Organization [facility] Address [address] [place] [address] Phone Care Team Providers Care Plant Engineering Manager Name Role Phone Unavailable Primary Care Provider Unavailabl e Encounter Details Date Type Department Care Team (Late st Contact Info) Description 07/22/2010 Documentation [facility] [address] [place] [address] Family Medicine, Physician [address] [place] [address] Social History Tobacco Use Types Packs/Day Years [...]
--- OUTSIDE RECORDS SUMMARY | 2024-10-18 06:11 | XMS_ITS | Encounter Summary ---
Author Organization [facility] Address [address] [place] [address] Phone Care Team Providers Care Air Conditioning Installer Supervisor Name Role Phone Unavailable Primary Care Provider Unavailabl e Encounter Details Date Type Department Care Team (Late st Contact Info) Description 08/24/2010 Documentation [facility] [address] [place] [address] Family Medicine, Physician [address] [place] [address] Social History Tobacco Use Types Packs/Day Years [...]
--- NOTE | 2024-10-18 06:17 | PC.NURSE ---
pt dropped the immodium.
[2024-10-18 06:32] LABS: Alanine Aminotransferase 31 U/L (0-40); Albumin Level 4.9 g/dL (3.5-5.0); Alkaline Phosphatase 54 U/L (39-117); Anion Gap 18 (12-20); Aspartate Amino Transferase 35 U/L (5-37); Bilirubin Total 0.5 mg/dL (0.0-1.0); Blood Urea Nitrogen 27 mg/dL (9-16); Calcium 10.3 mg/dL (8.4-10.2); Carbon Dioxide 18 mmol/L (22-29); Chloride 107 mmol/L (96-108); Creatinine Clr Calc Pharmacy 184.7; Estimated Glomerular Filt Rate > 60; Glucose Random 136 mg/dL (60-115); Potassium 4.6 mmol/L (3.3-5.1); Sodium 138 mmol/L (135-145); Total Protein 8.7 g/dL (6.5-8.0)
[2024-10-18 06:49] LABS: Influenza A PCR NEGATIVE (Negative); Influenza B PCR NEGATIVE (Negative); Resp Syncy Virus RNA Qual PCR NEGATIVE (Negative); SARS COV2 PCR INHOUSE NEGATIVE (Negative)
[2024-10-18] MEDS: Ketorolac Tromethamine 30 MG/ML VIAL IVPUSH (07:04)
[2024-10-18] MEDS: Dicyclomine HCl 10 MG CAPSULE 20 MG PO (07:05)
--- NOTE | 2024-10-18 07:08 | PC.NURSE ---
pt states his nausea has resolved, pt medicated for abd discomfort that has been reduced from 06/21 to 5. pt emery po pills no n/v. and no further diarrhea at this time. report given to Leticia agrcia
--- NOTE | 2024-10-18 08:09 | PC.NURSE ---
pt is alert and oriented, skin appropriate for ethnicity, respirations even and unlabored, pt reports feeling better denies nausea at this time and states his lower abd pain is 3/10, bowel sounds in all 4 quadrants and abd soft and non-tender
[2024-10-18 08:12] VITALS: BP 125/60; PULSE 73; RESP 14; TEMP 36.7; O2SAT 98
[2024-10-18 08:35] LABS: SLIDE REVIEW VERIFIED
[2024-10-18] MEDS: Lactated Ringers 1,000 ML 999 ML IV (10:12)
[2024-10-18] MEDS: Acetaminophen 1,000 MG/100 ML PIGGYBACK 400 MG IV (10:13)
[2024-10-18] MEDS: diphenhydrAMINE HCL 50 MG/ML VIAL 25 MG IVPUSH (10:13)
[2024-10-18] MEDS: Metoclopramide HCl 10 MG/2 ML VIAL IVPUSH (10:13)
[2024-10-18 10:30] VITALS: BP 124/67; PULSE 85; RESP 14; TEMP 36.8; O2SAT 99
[2024-10-18 11:09] VITALS: BP 124/67; PULSE 85; RESP 14; TEMP 36.8; O2SAT 99
== END 2024-10-18 11:10 | disposition home or self-care (01) ==
PROVIDERS: Internal Medicine; Emergency Provider Emergency Medicine; PCP Internal Medicine
DX: K52.9 Noninfective gastroenteritis and colitis, unspecified (principal); R11.2 Nausea with vomiting, unspecified; R10.2 Pelvic and perineal pain; Z03.818 Encounter for observation for suspected exposure to other biological agents ruled out; Z79.899 Other long term (current) drug therapy
CPT/HCPCS: 0241U; 74176; 80053; 85025; 96361; 96374; 96375; 99284; 99285; J0131; J1200; J1885; J2405; J2765; J7120

== ENCOUNTER → 2024-10-18 06:47 | Outpatient (BNV) | payer OTHER, SELFPAY | PROVIDERS: Emergency Provider Internal Medicine; PCP Internal Medicine; Visit Provider Radiology Diagnostic Radiology | DX: R10.9 Unspecified abdominal pain (principal) | CPT/HCPCS: 74176 ==

== ENCOUNTER 2025-04-26 15:36 | Emergency (ER) | payer OTHER, SELFPAY ==
--- NOTE | ~2025-04-26 | XR_ITS ---
EXAMINATION: XR CHEST 2 VIEWS HISTORY: CP COMPARISON: Comparison is made with the prior examination dated 09/27/2024. FINDINGS: PA and lateral views of the chest are submitted. The lungs are expanded and clear. There is no pleural effusion, pneumothorax, or pulmonary vascular congestion. The heart is normal in size. The bones are intact. XR/XR chest 2V IMPRESSION: No acute cardiopulmonary abnormality. Electronically signed by: Bertin Tan MD 04/26/2025 04:16 PM EDT
--- NOTE | 2025-04-26 15:39 | ECG_ITS ---
Test Reason : cp Blood Pressure : */* mmHG Vent. Rate : 71 BPM Atrial Rate : 71 BPM P-R Int : 142 ms QRS Dur : 92 ms QT Int : 380 ms P-R-T Axes : 44 28 18 degrees QTcB Int : 412 ms Normal sinus rhythm Normal ECG When compared with ECG of 14-Aug-2013 16:14, No significant change was found Referred By: Christine Delacruz Electronically Signed By: Ranjit Marroquin
--- NOTE | 2025-04-26 15:55 | ED.CHESTPAIN ---
HPI - Chest Pain General Chief Complaint: Chest Pain Stated Complaint: Chest pain radiating to back Time Seen by Provider: 04/26/25 17:52 Source: patient Mode of arrival: ambulatory Limitations: no limitations History of Present Illness ED Provider: Christine Delacruz APRN HPI narrative: This is a 29-year-old who presents to the ER with complaints of >24 hours of left sided chest pain with radiation to the left shoulder worsened with movement. No associated abdominal pain, shortness of breath, fevers, chills, leg swelling, leg pain, vomiting. No recent travel. No recent surgeries or hospitalizations. No personal family history of blood clots. No significant family history of sudden cardiac . Related Data Home Medications ?Medication ?Instructions ?Recorded ?Confirmed lorazepam 1 mg tablet (Ativan) 1 mg PO BID PRN 10/15/20 07/18/24 escitalopram oxalate 10 mg tablet 15 mg PO BEDTIME 12/17/21 07/18/24 trazodone 100 mg tablet 100 mg PO BEDTIME 12/17/21 07/18/24 Previous Rx's ?Medication ?Instructions ?Recorded ibuprofen 600 mg tablet 600 mg PO Q8H PRN pain 10 days #30 12/21/21 tabs bupropion HCl 150 mg 24 hr tablet, 150 mg PO QAM 30 days #30 tabs 03/31/22 extended release hydrocortisone 1 % topical cream 1 appl topical TID PRN skin 03/09/23 (Anti-Itch (hydrocortisone)) irritation 30 days #28.4 grams sumatriptan succinate 50 mg tablet 50 mg PO Q2-4H PRN migraine 05/13/24 headache 30 days #9 tabs fluticasone furoate 27.5 1 spray intranasal DAILY #9.1 mL 09/27/24 mcg/actuation nasal spray,suspension (Flonase Sensimist) ondansetron 4 mg disintegrating 4 mg PO Q8H PRN nausea and 10/18/24 tablet vomiting #7 tabs montelukast 10 mg tablet 10 mg PO BEDTIME #30 tabs 11/26/24 Allergies Allergy/AdvReac Type Severity Reaction Status Date / Time barium sulfate (ORAL Allergy Intermediate VOMITING Verified 04/26/25 15:58 CONTRAST) RED. Iodinated Contrast Media (IV Allergy Intermediate VOMITING Verified 04/26/25 15:58 DYE, IODINE CONTAINING CONTRAST ) ivp dye for contrast Allergy Unknown Unknown Uncoded 04/26/25 15:58 seasonal allergies Allergy Unknown Unknown Uncoded 04/26/25 15:58 Review of Systems Review of Systems: Yes all other systems are reviewed and are negative Constitutional: Constitutional: Reports no additional constitutional complaints, Denies body ache(s), Denies chills, Denies fever(s), Denies headache(s) and Denies weakness Eyes: Eyes: Reports no additional eye complaints and Denies change in vision ENT: Reports system reviewed and no additional complaints, except as documented, Denies dizziness, Denies headache(s), Denies nasal congestion, Denies nasal discharge and Denies neck pain Cardiovascular: Cardiovascular: Reports no additional cardiovascular complaints, Reports chest pain, Denies leg edema and Denies dyspnea Respiratory: Respiratory: Reports no additional respiratory complaints, Denies cough and Denies dyspnea Gastrointestinal: Gastrointestinal: Reports no additional gastrointestinal complaints, Denies abdominal pain, Denies diarrhea, Denies nausea and Denies vomiting Genitourinary: Genitourinary: Denies urinary incontinence Musculoskeletal: Musculoskeletal: Reports no additional musculoskeletal complaints, Reports back pain, Denies arthralgias, Denies joint swelling, Denies neck pain, Denies numbness and Denies tingling Integumentary/Breasts: Skin/Breast: Reports system reviewed and no additional complaints, except as docu and Denies rash Neurologic: Reports system reviewed and no additional complaints, except as documented, Denies Abnormal speech present, Denies dizziness, Denies headache(s), Denies numbness, Denies tingling and Denies weakness PMF Past Medical History Attestation statement: The following information was validated with the patient. Source: old records reviewed and nursing notes reviewed Medical History Varicocele AKBAR (generalized anxiety disorder) Mild recurrent major depression Snoring Morbid obesity Otitis externa Insomnia Eczema Asperger syndrome Depression with anxiety Surgical History History of lymph node excision History of hernia repair Family History Family History Father Essential hypertension Mother Essential hypertension Sister Healthy adult Paternal Grandmother Stroke Social History Social History Housing: Apartment Alcohol intake: never Patient Tobacco Use Status: Never used Tobacco e-Cigarette/Vaping Use: Never Used Second Hand Smoke Exposure: No Advance Directives: No Advance Directives Information Provided: No Do you have a plan to hurt others: No Plan service: No Current occupational status: unemployed Cognitive needs: No Hearing needs: No Vision needs: No Physical Exam Vital Signs: Vital Signs: Last Vital Signs Temp 98 F 04/26/25 15:56 Pulse 68 04/26/25 15:56 Resp 18 04/26/25 15:56 BP 126/58 L 04/26/25 15:56 Pulse Ox 98 04/26/25 15:56 O2 Del Method Room Air 04/26/25 15:56 BMI result Body Mass Index 38.0 Const: General: cooperative, healthy appearing, comfortable and no acute distress Orientation/consciousness: patient oriented x3 Limitations: no limitations HEENT: Head: Yes normal to inspection Ears: hearing grossly normal bilaterally General nose exam: Normal external nose present Face and sinus: Yes normal facial exam Mouth: Normal oral and palatal mucosa present Throat: Yes posterior oropharynx normal Eyes: General: appearance normal, both eyes and all related structures Pupils: Equal, round and reactive pupils present Neck: Neck: Yes normal visual inspection Chest: Chest palpation & inspection: normal inspection of the chest Resp: Effort & Inspection: normal respiratory effort Auscultation: clear to auscultation bilaterally Cardio: Rate: regular rate Rhythm: regular rhythm Peripheral pulses: Peripheral pulses 2+ throughout GI: Inspection: Yes normal to inspection Palpation (GI): Soft to palpation and nontender Auscultation: normal bowel sounds Back/Spine/Pelvis: Thoracic/Lumbar Spine: thoracic and lumbar spine normal to inspection Skin: General skin exam: no rashes or lesions noted Neuro: General: patient oriented x3, no focal motor deficits and normal sensation to monofilament Cranial nerves: Yes Equal, round and reactive pupils present Cognition (Neuro): normal cognition Speech: No Abnormal speech present Gait exam (Neuro): Normal gait present Motor exam (neuro): 5/5 motor strength present throughout Extrem: General: Yes normal to inspection, Yes no calf tenderness and No pedal edema Course Course Course Narrative: Christine Delacruz CISCO ENGINEER 04/26 0780 This is a rapid medical exam. Deferred additional HPI, ROS, PE to primary provider. 29 yo male who has no known medical history presents the ER with complaints of chest pain since yesterday. Will obtain labs, EKG, CXR VSS Reevaluation(s) Reevaluation #1: Labs are unremarkable. EKG is nonischemic. Chest x-ray shows no acute finding. Recommend patient follow up outpatient with his primary care doctor as you may need additional testing done. Reviewed worrisome signs and symptoms of when to return to the emergency room. Comfortable plan for discharge home. Medical Decision Making Medical Decision Making [facility] Narrative: This is a 29-year-old who presents to the ER with complaints of >24 hours of left sided chest pain with radiation to the left shoulder worsened with movement. No associated abdominal pain, shortness of breath, fevers, chills, leg swelling, leg pain, vomiting. No recent travel. No recent surgeries or hospitalizations. No personal family history of blood clots. No significant family history of sudden cardiac . Heart sounds normal. Lungs are clear. No pedal swelling or calf tenderness. Vitals are stable Will obtain labs, EKG, chest x-ray Differential Diagnosis Differential Diagnoses: The differential diagnosis associated with the presentation includes Low suspicion for ACS with symptoms greater than 24 hours with flat troponin and nonischemic EKG Low suspicion for PE with no clinical findings concerning for DVT or PE, no hypoxia, no tachypnea, perc negative Low suspicion for aortic dissection with gradual onset of symptoms Low suspicion for pneumothorax, pneumonia Admission/Observation Consideration of admission/observation: Escalation of care including admission/observation considered Heart score is 0. No need for admission for further cardiac workup. Can follow up outpatient with primary care Lab Data [facility] Lab Attestation statement: I reviewed the patient's lab results. 04/26/25 16:17 04/26/25 16:17 Labs: Lab Results 04/26/25 Range/Units 16:17 WBC 6.7 (4.8-10.8) X10*3/uL RBC 5.56 (4.60-5.80) X10*6/uL Hgb 15.4 (14.0-18.0) g/dl Hct 44.9 (42.0-52.0) % MCV 80.8 (80.0-98.0) fL MCH 27.7 (27.0-33.0) pg MCHC 34.3 (31.0-36.0) g/dl RDW 12.3 (11.0-16.0) % Plt Count 192 (160-400) X10*3/uL MPV 10.6 (9.4-12.4) fL Immature Gran % (Auto) 0.4 (0.0-0.4) % Neut % (Auto) 58.0 (45-73) % Lymph % (Auto) 26.5 (20-40) % [facility] % (Auto) 11.0 (2-11) % Eos % (Auto) 3.1 (0-4) % Baso % (Auto) 1.0 (0-2) % Lymph # (Auto) 1.8 (1.2-4.9) X10*3/uL [facility] # (Auto) 0.7 (0.1-1.2) X10*3/uL Eos # (Auto) 0.2 (0.0-0.4) X10*3/uL Baso # (Auto) 0.1 (0.0-0.2) X10*3/uL Abs Immat Gran (auto) 0.03 (0.00-0.03) X10*3/uL Absolute Neuts (auto) 3.9 (2.0-8.3) x10*3/uL Absolute Nucleated RBC 0.000 (0.0-0.012) X10*3/uL Nucleated RBC % (auto) 0.0 (0.0-0.2) /100WBC Sodium 138 (135-145) mmol/L Potassium 4.7 (3.3-5.1) mmol/L Chloride 104 (96-108) mmol/L Carbon Dioxide 27 (22-29) mmol/L Anion Gap 12 (12-20) BUN 19 H (9-16) mg/dL Creatinine 0.81 (0.5-1.4) mg/dL Estim Creat Clear Calc 186.9 Estimated GFR > 60 Random Glucose 93 (60-115) mg/dL Calcium 9.6 D (8.4-10.2) mg/dL Total Bilirubin 0.3 (0.0-1.0) mg/dL Direct Bilirubin 0.1 (0.0-0.5) mg/dL AST 26 (5-37) U/L ALT 35 (0-40) U/L Alkaline Phosphatase 51 (39-117) U/L Troponin I High Sens < 2.7 (<3.5-35.0) ng/L Total Protein 7.3 (6.5-8.0) g/dL Albumin 4.7 (3.5-5.0) g/dL Lipase 22 (8-78) U/L Independent Interpretation I performed an independent interpretation of an: EKG and Plain X-Ray Interpretation: I independently viewed the EKG which shows normal sinus rhythm with a rate of 71, normal TN, normal QRS, normal QT I independently viewed the chest x-ray which shows no acute finding Radiology Impression Discussion of test interpretation with radiology: I have reviewed the radiologist's reading. Radiologist Impression: [address] [address] XRay Report Signed Patient: Ed Santoyo MR#: [id number] : 1995 Acct:[id number] Age/Sex: 29 / M ADM Date: 04/26/25 Loc: .ED Attending Dr: Ordering Physician: Christine Delacruz NP Date of Service: 04/26/25 Procedure(s): XR chest 2V Accession Number(s): [id number] cc: Christine Delacruz NP; Odalis Gómez MD~ EXAMINATION: XR CHEST 2 VIEWS HISTORY: CP COMPARISON: Comparison is made with the prior examination dated 09/27/2024. FINDINGS: PA and lateral views of the chest are submitted. The lungs are expanded and clear. There is no pleural effusion, pneumothorax, or pulmonary vascular congestion. The heart is normal in size. The bones are intact. XR/XR chest 2V IMPRESSION: No acute cardiopulmonary abnormality. Electronically signed by: Bertin Tan MD 04/26/2025 04:16 PM EDT Discharge Plan Discharge Clinical Impression: Chest pain Patient Disposition: Home, Self-Care Instructions: Chest Pain (ED) Additional Instructions: Your blood work, EKG and x-ray all are reassuring I would recommend that you follow-up with your primary care doctor as you may need additional testing Return for any worsening symptoms Prescriptions: No Action ibuprofen 600 mg tablet 600 mg PO Q8H PRN (Reason: pain) 10 Days Qty: 30 0RF bupropion HCl 150 mg tablet extended release 24 hr 150 mg PO QAM 30 Days Qty: 30 0RF sumatriptan succinate 50 mg tablet 50 mg PO Q2-4H PRN (Reason: migraine headache) 30 Days Qty: 9 2RF Rx Instructions: do not exceed 4 doses per 24 hrs montelukast 10 mg tablet 10 mg PO BEDTIME Qty: 30 11RF ondansetron 4 mg tablet,disintegrating 4 mg PO Q8H PRN (Reason: nausea and vomiting) Qty: 7 0RF lorazepam [Ativan] 1 mg tablet 1 mg PO BID PRN hydrocortisone [Anti-Itch (HC)] 1 % cream 1 appl topical TID PRN (Reason: skin irritation) 30 Days Qty: 28.4 1RF escitalopram oxalate 10 mg tablet 15 mg PO BEDTIME trazodone 100 mg tablet 100 mg PO BEDTIME Flonase Sensimist 27.5 mcg/actuation spray,suspension 1 spray intranasal DAILY Qty: 9.1 0RF Rx Instructions: into each nostril Referrals: Odalis Gómez MD [Primary Care Provider, Internal Medicine] Print Language: Thai
[2025-04-26 15:56] VITALS: BP 126/58; PULSE 68; RESP 18; TEMP 36.6; O2SAT 98; BMI 38.0
[2025-04-26 16:22] LABS: MANUAL DIFF FLAG NO
[2025-04-26 16:23] LABS: Hematocrit 44.9 % (42.0-52.0); Hemoglobin 15.4 g/dl (14.0-18.0); Imm Gran Abs Auto 0.03 X10*3/uL (0.00-0.03); Imm Gran Pct Auto 0.4 % (0.0-0.4); Lymphocytes Absolute Auto 1.8 X10*3/uL (1.2-4.9); Mean Corpuscular HGB Conc 34.3 g/dl (31.0-36.0); Mean Corpuscular Hemoglobin 27.7 pg (27.0-33.0); Mean Corpuscular Volume 80.8 fL (80.0-98.0); NRBC Abs Auto 0.000 X10*3/uL (0.0-0.012); NRBC Pct Auto 0.0 /100WBC (0.0-0.2); Platelet Count 192 X10*3/uL (160-400); Red Blood Count 5.56 X10*6/uL (4.60-5.80); White Blood Count 6.7 X10*3/uL (4.8-10.8)
[2025-04-26 16:40] LABS: Alanine Aminotransferase 35 U/L (0-40); Albumin Level 4.7 g/dL (3.5-5.0); Alkaline Phosphatase 51 U/L (39-117); Anion Gap 12 (12-20); Aspartate Amino Transferase 26 U/L (5-37); Blood Urea Nitrogen 19 mg/dL (9-16); Calcium 9.6 mg/dL (8.4-10.2); Carbon Dioxide 27 mmol/L (22-29); Chloride 104 mmol/L (96-108); Creatinine Clr Calc Pharmacy 186.9; Estimated Glomerular Filt Rate > 60; Lipase 22 U/L (8-78); Potassium 4.7 mmol/L (3.3-5.1); Sodium 138 mmol/L (135-145); Total Protein 7.3 g/dL (6.5-8.0)
[2025-04-26 16:48] LABS: Troponin-I High Sensitivity < 2.7 ng/L (<3.5-35.0)
[2025-04-26 18:13] VITALS: BP 126/58; PULSE 68; RESP 18; TEMP 36.6; O2SAT 98
== END 2025-04-26 18:13 | disposition home or self-care (01) ==
PROVIDERS: Nurse Practitioner Family; Emergency Provider Emergency Medicine; PCP Internal Medicine
DX: R07.9 Chest pain, unspecified (principal); E66.01 Morbid (severe) obesity due to excess calories; Z68.38 Body mass index [BMI] 38.0-38.9, adult; Z79.899 Other long term (current) drug therapy
CPT/HCPCS: 36415; 71046; 80048; 80076; 83690; 84484; 85025; 93005; 99282; 99283

== ENCOUNTER → 2025-04-26 15:39 | Outpatient (BNV) | payer OTHER, SELFPAY | PROVIDERS: Emergency Provider Emergency Medicine; PCP Internal Medicine; Visit Provider Internal Medicine Cardiovascular Disease | DX: R07.89 Other chest pain (principal) | CPT/HCPCS: 93010 ==

== ENCOUNTER → 2025-04-26 15:56 | Outpatient (BNV) | payer OTHER, SELFPAY | PROVIDERS: PCP Internal Medicine; Visit Provider Radiology Diagnostic Radiology | DX: R07.9 Chest pain, unspecified (principal) | CPT/HCPCS: 71046 ==

== ENCOUNTER 2025-06-13 13:44 | Outpatient (REF) | payer OTHER, SELFPAY ==
[2025-06-13 14:02] LABS: MANUAL DIFF FLAG NO
[2025-06-13 14:14] LABS: Hematocrit 46.9 % (42.0-52.0); Hemoglobin 15.6 g/dl (14.0-18.0); Imm Gran Abs Auto 0.04 X10*3/uL (0.00-0.03); Imm Gran Pct Auto 0.7 % (0.0-0.4); Lymphocytes Absolute Auto 2.1 X10*3/uL (1.2-4.9); Mean Corpuscular HGB Conc 33.3 g/dl (31.0-36.0); Mean Corpuscular Hemoglobin 27.3 pg (27.0-33.0); Mean Corpuscular Volume 82.1 fL (80.0-98.0); NRBC Abs Auto 0.000 X10*3/uL (0.0-0.012); NRBC Pct Auto 0.0 /100WBC (0.0-0.2); Platelet Count 193 X10*3/uL (160-400); Red Blood Count 5.71 X10*6/uL (4.60-5.80); White Blood Count 6.0 X10*3/uL (4.8-10.8)
[2025-06-13 14:36] LABS: Alanine Aminotransferase 48 U/L (0-40); Albumin Level 4.8 g/dL (3.5-5.0); Alkaline Phosphatase 50 U/L (39-117); Anion Gap 11 (12-20); Aspartate Amino Transferase 31 U/L (5-37); Blood Urea Nitrogen 17 mg/dL (9-16); Calcium 9.2 mg/dL (8.4-10.2); Carbon Dioxide 26 mmol/L (22-29); Chloride 107 mmol/L (96-108); Estimated Glomerular Filt Rate > 60; Potassium 4.3 mmol/L (3.3-5.1); Sodium 140 mmol/L (135-145); Total Protein 7.5 g/dL (6.5-8.0)
--- OUTSIDE RECORDS SUMMARY | 2025-06-13 15:25 | XMS_ITS | Encounter Summary ---
Author Organization [facility] Address [address] [place] [phone] Phone Care Team Providers Care Barrel Driller Name Role Phone Unavailable Primary Care Provider Unavailabl e Encounter Details Date Type Department Care Team (Late st Contact Info) Description 03/27/2015 Documentation [facility] [address] [place] [address] Family Medicine, Physician [address] [place] [address] Social History Tobacco Use Types Packs/Day Years [...]
--- OUTSIDE RECORDS SUMMARY | 2025-06-13 15:25 | XMS_ITS | Encounter Summary ---
Author Organization [facility] Address [address] [place] [address] Phone Care Team Providers Care Automatic Spinning Lathe Setter Name Role Phone Unavailable Primary Care Provider Unavailabl e Encounter Details Date Type Department Care Team (Late st Contact Info) Description 11/17/2010 Documentation [facility] [address] [place] [address] Family Medicine, Physician [address] [place] [address] Social History Tobacco Use Types Packs/Day Years [...]
--- OUTSIDE RECORDS SUMMARY | 2025-06-13 15:25 | XMS_ITS | Clinical Summary ---
Author Organization [facility] Address [address] [place] [phone] Phone Care Team Providers Care Financial Service Rep Name Role Phone Unavailable Primary Care Provider Unavailabl e Allergies Active Allergy Reactions Criticality Noted Date Comments Environmental 12/08/2017 [place] Medications traZODone 150 MG tablet Take 150 [...] on 01/04/2019 LORazepam 1 MG tablet TOME MICHELLE TABLETA POR V?A ORAL DEMARCUS VECES AL D?A 3 9 Active ADDERALL XR 10 MG 24 hr capsule TOME MICHELLE C?PSULA TODOS LOS D? EN LA MA?JUAN ANTONIO 0 9 Active fluticasone 50 MCG/ACT nasal sprayIndication s:Seasonal allergic rhinitis 1 [place] in each nostril q d prn allergies [...] 91 03/08/2019 3:15 PM EDT Temperature 36.6 C (97.8 F) 01/04/2019 3:53 PM EDT Respiratory Rate 20 10/26/2018 4:01 PM EST [...] - 13+ 2-dose series) 04/09/2010 03/12/2010, 11/28/2000 Influenza Vaccines (#1) 2025 06/16/20 18, 06/03/2017, 07/02/2016, Additional history exists COVID-19 Vaccine (2024- season) 2025 DTaP,Tdap,and Td Vaccines (8 - Td or [...] patient's age to complete this topic Insurance [facility] NON PCC
--- OUTSIDE RECORDS SUMMARY | 2025-06-13 15:25 | XMS_ITS | Encounter Summary ---
Author Organization [facility] Address [address] [place] [phone] Phone Care Team Providers Care Brake Repairer Railroad Name Role Phone Unavailable Primary Care Provider Unavailabl e Encounter Details Date Type Department Care Team (Late st Contact Info) Description 01/07/2011 Documentation [facility] [address] [place] [address] Family Medicine, Physician [address] [place] [address] Social History Tobacco Use Types Packs/Day Years [...]
--- OUTSIDE RECORDS SUMMARY | 2025-06-13 15:25 | XMS_ITS | Encounter Summary ---
Author Organization [facility] Address [address] [place] [address] Phone Care Team Providers Care Explosive Specialist Name Role Phone Unavailable Primary Care Provider Unavailabl e Encounter Details Date Type Department Care Team (Late st Contact Info) Description 08/24/2010 Documentation [facility] [address] [place] [address] Family Medicine, Physician [address] [place] [address] Social History Tobacco Use Types Packs/Day Years [...]
--- OUTSIDE RECORDS SUMMARY | 2025-06-13 15:25 | XMS_ITS | Encounter Summary ---
Author Organization [facility] Address [address] [place] [phone] Phone Care Team Providers Care Duplicating Machine Servicer Name Role Phone Unavailable Primary Care Provider Unavailabl e Encounter Details Date Type Department Care Team (Late st Contact Info) Description 12/14/2016 Documentation [facility] [address] [place] [address] Family Medicine, Physician [address] [place] [address] Social History Tobacco Use Types Packs/Day Years [...]
--- OUTSIDE RECORDS SUMMARY | 2025-06-13 15:25 | XMS_ITS | Encounter Summary ---
Author Organization [facility] Address [address] [place] [phone] Phone Care Team Providers Care Spring Setter Name Role Phone Unavailable Primary Care Provider Unavailabl e Reason for Visit * Reason Comments Med Refill Encounter Details Date Type Department Care Team (Late st Contact Info) Description 06/20/2019 Refill [facility] - [address] [address] Salazar De Leon MD Seasonal allergic rhinitis [...]
--- OUTSIDE RECORDS SUMMARY | 2025-06-13 15:25 | XMS_ITS | Encounter Summary ---
Author Organization [facility] Address [address] [place] [phone] Phone Care Team Providers Care Manager Test Name Role Phone Unavailable Primary Care Provider Unavailabl e Encounter Details Date Type Department Care Team (Late st Contact Info) Description 03/04/2017 Documentation [facility] [address] [place] [address] Family Medicine, Physician [address] [place] [address] Social History Tobacco Use Types Packs/Day Years [...]
--- OUTSIDE RECORDS SUMMARY | 2025-06-13 15:25 | XMS_ITS | Encounter Summary ---
Author Organization [facility] Address [address] [place] [phone] Phone Care Team Providers Care Tire Changer Name Role Phone Unavailable Primary Care Provider Unavailabl e Encounter Details Date Type Department Care Team (Late st Contact Info) Description 10/25/2014 Documentation [facility] [address] [place] [address] Family Medicine, Physician [address] [place] [address] Social History Tobacco Use Types Packs/Day Years [...]
--- OUTSIDE RECORDS SUMMARY | 2025-06-13 15:25 | XMS_ITS | Encounter Summary ---
Author Organization [facility] Address [address] [place] [address] Phone Care Team Providers Care Platform Beater Name Role Phone Unavailable Primary Care Provider Unavailabl e Encounter Details Date Type Department Care Team (Late st Contact Info) Description 07/22/2010 Documentation [facility] [address] [place] [address] Family Medicine, Physician [address] [place] [address] Social History Tobacco Use Types Packs/Day Years [...]
--- OUTSIDE RECORDS SUMMARY | 2025-06-13 15:25 | XMS_ITS | Encounter Summary ---
Author Organization [facility] Address [address] [place] [address] Phone Care Team Providers Care Specimen Accessioner Name Role Phone Unavailable Primary Care Provider Unavailabl e Encounter Details Date Type Department Care Team (Late st Contact Info) Description 10/01/2015 Documentation [facility] [address] [place] [address] Family Medicine, Physician [address] [place] [address] Social History Tobacco Use Types Packs/Day Years [...]
--- OUTSIDE RECORDS SUMMARY | 2025-06-13 15:25 | XMS_ITS | Encounter Summary ---
Author Organization [facility] Address [address] [place] [address] Phone Care Team Providers Care C D Stripper Name Role Phone Unavailable Primary Care Provider Unavailabl e Encounter Details Date Type Department Care Team (Late st Contact Info) Description 09/21/2016 Documentation [facility] Family Medicine [address] [place] [address] Family Medicine, Physician [address] [place] [address] Social History Tobacco Use Types Packs/Day Years [...]
--- OUTSIDE RECORDS SUMMARY | 2025-06-13 15:25 | XMS_ITS | Encounter Summary ---
Author Organization [facility] Address [address] [place] [address] Phone Care Team Providers Care Feed House Supervisor Name Role Phone Unavailable Primary Care Provider Unavailabl e Encounter Details Date Type Department Care Team (Late st Contact Info) Description 04/28/2017 Conversion Encounter [facility] - [address] [phone] Social History Tobacco Use Types Packs/Day Years [...]
--- OUTSIDE RECORDS SUMMARY | 2025-06-13 15:25 | XMS_ITS | Encounter Summary ---
Author Organization [facility] Address [address] [place] [address] Phone Care Team Providers Care Monitoring Manager Name Role Phone Unavailable Primary Care Provider Unavailabl e Encounter Details Date Type Department Care Team (Late st Contact Info) Description 07/29/2010 Documentation EM Family Medicine [address] [place] [address] Family Medicine, Physician [address] [place] [address] Social History Tobacco Use Types Packs/Day Years [...]
--- OUTSIDE RECORDS SUMMARY | 2025-06-13 15:25 | XMS_ITS | Encounter Summary ---
Author Organization [facility] Address [address] [place] [address] Phone Care Team Providers Care Cook Specialty Foreign Food Name Role Phone Unavailable Primary Care Provider Unavailabl e Encounter Details Date Type Department Care Team (Late st Contact Info) Description 12/14/2016 Documentation EM Family Medicine [address] [place] [address] Family Medicine, Physician [address] [place] [address] Social History Tobacco Use Types Packs/Day Years [...]
[2025-06-13 16:05] LABS: CT PCR Urine NOT DETECTED (Not Detect.); NG PCR Urine NOT DETECTED (Not Detect.)
[2025-06-14 05:26] LABS: HBS Num1 4.71 mIU/mL (0-7.99); HBc Num1 0.08 S/CO (0.00-0.79); HBsAGNum1 0.33 S/CO (0.00-0.99); HIV Num 1 0.08 S/CO (0.00-0.99); Hepatitis B Surface Antigen Negative (Negative); ~HepC Num1 0.09 S/CO (0.00-0.79); ~Hepatitis B Surface Antibody NONREACTIVE (Nonreactive); ~Hepatitis C Antibody Nonreactive (Nonreactive)
== END 2025-06-13 13:45 | disposition home or self-care (01) ==
LOC: HO.LAB 13:44
PROVIDERS: PCP Internal Medicine; Visit Provider Internal Medicine
DX: Z11.4 Encounter for screening for human immunodeficiency virus [HIV] (principal); Z11.59 Encounter for screening for other viral diseases; Z11.3 Encounter for screening for infections with a predominantly sexual mode of transmission; Z20.2 Contact with and (suspected) exposure to infections with a predominantly sexual mode of transmission; D58.2 Other hemoglobinopathies; R53.83 Other fatigue
CPT/HCPCS: 80053; 85025; 86592; 86704; 86706; 86803; 87340; 87389; 87491; 87591

== ENCOUNTER 2025-07-25 16:00 | Outpatient (AMB) | payer OTHER, SELFPAY ==
[2025-07-25 16:01] VITALS: BP 110/60; PULSE 80; O2SAT 97; BMI 38.4
--- NOTE | 2025-07-25 16:01 | MHC.PC.OV ---
Vital Signs 07/25/25 16:01 Height 6 ft Weight 283 lb 2 oz BMI 38.4 BP 110/60 Blood Pressure Location Lt brachial Position Sitting Pulse 80 Pulse Source Pulse Oximeter Pulse Oximetry (%) 97 Oxygen Delivery Method Room Air Intake Visit Reasons: physical exam Spud Driller Required: No Accompanied by: Self / Same As Patient Allergies barium sulfate (ORAL CONTRAST) Allergy (Intermediate, Verified 07/25/25 16:14) VOMITING RED. Iodinated Contrast Media (IV DYE, IODINE CONTAINING CONTRAST ) Allergy (Intermediate, Verified 07/25/25 16:14) VOMITING ivp dye for contrast Allergy (Unknown, Uncoded 07/25/25 16:14) Unknown seasonal allergies Allergy (Unknown, Uncoded 07/25/25 16:14) Unknown Medication List - Last Reconciled 07/25/25 by Odalis Calvo MD bupropion HCl XL 150 mg PO QAM 30 days escitalopram oxalate 15 mg PO BEDTIME fluticasone furoate 27.5 mcg/actuation (Flonase Sensimist) 1 spray intranasal DAILY hydrocortisone 1% (Anti-Itch (hydrocortisone)) 1 appl topical TID PRN 30 days ibuprofen 600 mg PO Q8H PRN 10 days lorazepam (Ativan) 1 mg PO BID PRN montelukast 10 mg PO BEDTIME ondansetron 4 mg PO Q8H PRN sumatriptan succinate 50 mg PO Q2-4H PRN 30 days trazodone 100 mg PO BEDTIME Tobacco use date assessed: 07/25/25 Dental Screening Dental Screen Date: 07/25/25 Did you have a dental visit in the last 12 months?: Yes Did you have a dental problem in the last 6 months where you did not have access to dental care?: No Was dental information given to patient?: Patient has dentist HPI HPI Comments History of Present Illness Details The patient is a 29-year-old male presenting for physical exam. Tdap vaccine up-to-date. He also has eczema and would like a refill on his cream. Has autism spectrum disorder and mild major depression follow by Psychiatry. The patient's past surgical history is notable for a hernia repair in 1996 and a lymph node excision in 2015. Current medications include bupropion, escitalopram, lorazepam, montelukast, sumatriptan, and trazodone. He has a known allergy to barium contrast. Lab work from June was reviewed and was largely normal, including hemoglobin and white blood cell count. Renal function was normal, and blood glucose was 86 mg/dL. One liver enzyme was noted to be slightly elevated, attributed to non-significant fatty liver disease. Screenings for gonorrhea, syphilis, chlamydia, and hepatitis were all negative. [facility] Medical History (Updated 07/25/25 @ 16:29 by Odalis Calvo MD) Elevated hemoglobin Varicocele AKBAR (generalized anxiety disorder) Mild recurrent major depression Snoring Morbid obesity Otitis externa Insomnia Eczema Asperger syndrome Depression with anxiety Surgical History History of lymph node excision History of hernia repair Family History Father Essential hypertension Mother Essential hypertension Sister Healthy adult Paternal Grandmother Stroke Social History Housing: Apartment Alcohol intake: never Patient Tobacco Use Status: Never used Tobacco e-Cigarette/Vaping Use: Never Used Second Hand Smoke Exposure: No service: No Current occupational status: unemployed Cognitive needs: No Hearing needs: No Vision needs: No Questionnaire PHQ-9 Over the last 2 weeks, how often have you been bothered by any of the following problems? 1. Little interest or pleasure in doing things: not at all 2. Feeling down, depressed, or hopeless: not at all 3. Trouble falling or staying asleep, or sleeping too much: more than half the days 4. Feeling tired or having little energy: several days 5. Poor appetite or overeating: not at all 6. Feeling bad about yourself - or that you are a failure or have let yourself or your family down: several days 7. Trouble concentrating on things, such as reading the newspaper or watching television: not at all 8. Moving or speaking so slowly that other people could have noticed. Or the opposite - being so fidgety or restless that you have been moving around a lot more than usual: not at all 9. Thoughts that you would be better off or of hurting yourself in some way: not at all Total score: 4 Depression Screening Interpretation: Positive Depression Screening Follow-up: Existing condition, In treatment, Community Mental Health Worker F/U and Follow-up Visit Requested Depression Screening Done: Yes 92675 - PHQ-9 Billing: Yes Source: Developed by Drs. Bertin Rodriguez, Niurka Bonds, Ross Phillips and colleagues, with an educational gabe from [employer]. Thrive Questionnaire Date Thrive assessed: 07/25/25 I am a: Patient What is your living situation today?: I have a steady place to live Within the past 12 months, did the food you bought not last and you didn't have the money to get more?: Never true Within the past 12 months, did you worry whether your food would run out before you got money to buy more?: Never true Do you have trouble paying for medicines?: No Do you have trouble getting transportation to medical appointments?: No Do you have trouble paying your heating and electricity bill?: No Do you have trouble taking care of your child, family member or friend?: No Do you have trouble with day-to-day activities such as bathing, preparing meals, shopping, managing finances, etc.?: No Are you currently unemployed and looking for a job?: No Are you interested in more education?: No Please select the resources that you would like help with: None Currently or been in a relationship where the following occur: No concerns reported THRIVE Score: 0 AUDIT C Alcohol Use Questionnaire (AUDIT-C) 1. How often do you have a drink containing alcohol?: Never 3. How often do you have six or more drinks on one occasion?: Never Total Score: 0 Score Reviewed/Action Taken: No AKBAR-7 AMB Questionnaire AKBAR-7 Date AKBAR - 7 assessed: 07/25/25 Feeling nervous, anxious, or on edge: 0 = Not at all Not being able to stop or control worryin = Not at all Worrying too much about different things: 0 = Not at all Trouble relaxin = Not at all Being so restless that it is hard to sit still: 0 = Not at all Becoming easily annoyed or irritable: 0 = Not at all Feeling afraid as if something awful might happen: 0 = Not at all Total AKBAR-7 score (0-4 normal; 5-9 mild; 10-14 moderate; 15-21 severe): 0 Source: Developed by Drs. Bertin Rodriguez, Niurka Bonds, Ross Phillips and colleagues, with an educational gabe from [employer]. AKBAR-7 Assessment Billing AKBAR-7 Assessment Tool: AKBAR-7 Assessment 09604 Review of Systems Const All systems reviewed & are unremarkable except as noted in HPI and below Card Denies chest pain at rest, Denies chest pain with activity, Denies edema, Denies irregular heart rhythm, Denies claudication, Denies dyspnea, Denies dyspnea on exertion, Denies orthopnea, Denies paroxysmal nocturnal dyspnea and Denies slow heart rate Resp Denies cough, Denies dyspnea and Denies dyspnea on exertion GI Denies abdominal pain, Denies change in bowel habits, Denies excessive flatus, Denies nausea and Denies vomiting Aller/Immun Denies urticaria Physical exam (Primary Care) Vital Signs: Last Vital Signs Pulse 80 07/25/25 16:01 BP 110/60 07/25/25 16:01 Pulse Ox 97 07/25/25 16:01 Oxygen Delivery Method Room Air 07/25/25 16:01 BMI result Body Mass Index 38.4 BMI Assessment/Plan discussion: High BMI High, discussed plan: lifestyle, weight reduction, dietary and physical activity Tobacco/Smoking Status: Tobacco use Status Tobacco use date assessed 07/25/25 07/25/25 16:07 Patient Tobacco Use Status Never used Tobacco 07/25/25 16:07 Tobacco use type 03/09/23 14:54 e-Cigarette/Vaping Use Never Used 07/25/25 16:07 PHQ-9: PHQ-9 Score PHQ-9: Total score 4 07/25/25 16:07 Depression Screening Interpretation: Positive Depression Screening Follow-up: Existing condition, In treatment, Community Mental Health Worker F/U and Follow-up Visit Requested Thrive Assessment: Date of Thrive Assessment Date Thrive assessed 07/25/25 07/25/25 16:07 Currently or been in a relationship where the following occur: No concerns reported HENMT Head: Yes normal to inspection, Yes normocephalic and Yes atraumatic Ears: external ears normal Eyes General: appearance normal, both eyes and all related structures Eyelids: Yes eyelids normal Conjunctivae: conjunctivae normal Neck Neck: Yes normal visual inspection and Yes supple Resp Effort & Inspection: normal respiratory effort Auscultation: clear to auscultation bilaterally Cardio Jugular venous distension: no JVD Rate: regular rate Rhythm: regular rhythm Heart sounds: S1 normal heart sound present and S2 normal heart sound present GI Inspection: Yes normal to inspection Palpation (GI): Soft to palpation and nontender Auscultation: normal bowel sounds Skin General skin exam: no rashes or lesions noted Neuro General: no focal motor deficits Extrem General: Yes full ROM Psych Appearance: grossly normal Office Procedures Flu Questionnaire Does the patient have a severe egg allergy?: No Does the patient have severe life threatening allergies?: No Does the patient have a fever or illness today?: No Has the patient ever had Guillain-[place] Syndrome?: No Has the patient ever had any past reaction to a flu shot?: No Immunizations Fluarix [id number] (PF) 45 mcg (15 mcg x 3)/0.5 mL IM syringe Performing Provider: Odalis Calvo MD [place]forming [facility] [place] [facility] [place] Administered by: Brooke Causey RN on 07/25/25 16:31 Dose Route Admin Location Dispensed Lot Number Expiration Date [facility] Equal Opportunity Director 0.5 mL IM Left Deltoid 0.5 mL [id number] 03/11/26 [id number] Yabbly VIS Given Date VIS Provided VIS Publication Date 07/25/25 Single Vaccine 24 Eligibility Eligibility Date Funding Source Not [facility] Eligible 07/25/25 Private Coding Level of Care Code Est Pt Level 3 (27206) Est Pt Prev Care 18-39y(02314) Diagnoses Physical exam Z00.00 Mild recurrent major depression F33.0 Eczema L30.9 Additional Codes PHQ-9 - 65567 - PHQ-9 Billing: Yes ([id number]) AKBAR-7 Assessment Billing - AKBAR-7 Assessment Tool: AKBAR-7 Assessment 44660 ([id number]) Time Spent (min) 33 Assessment & Plan Assessment & Plan (1) Physical exam: Code(s): Z00.00 - Encounter for general adult medical examination without abnormal findings Category: Medical (2) Mild recurrent major depression: Code(s): F33.0 - Major depressive disorder, recurrent, mild Category: Medical (3) Eczema: Code(s): L30.9 - Dermatitis, unspecified Category: Medical Plan Plan 1. Physical exam Repeat in a year. Flu vaccine administered today. 2. Mild major depression Continue bupropion. Follow-up with psychiatry. 3. Eczema The patient reports eczema on the face and requests a cream. A low-dose hydrocortisone cream will be prescribed, with caution advised for facial use. Orders: Orders Influenza [id number] Immunization Today Z23 - Encounter for immunization Medications: Refilled hydrocortisone 1% (Anti-Itch (hydrocortisone)) 1 appl topical TID PRN 28.4 grams 1RF skin irritation 30 days
--- NOTE | 2025-07-25 16:27 | AM.OFFVISNUR ---
Vital Signs 07/25/25 16:01 Height 6 ft Weight 283 lb 2 oz BMI 38.4 BP 110/60 Blood Pressure Location Lt brachial Position Sitting Pulse 80 Pulse Source Pulse Oximeter Pulse Oximetry (%) 97 Oxygen Delivery Method Room Air Intake Visit Reasons: physical exam Allergies barium sulfate (ORAL CONTRAST) Allergy (Intermediate, Verified 07/25/25 16:14) VOMITING RED. Iodinated Contrast Media (IV DYE, IODINE CONTAINING CONTRAST ) Allergy (Intermediate, Verified 07/25/25 16:14) VOMITING ivp dye for contrast Allergy (Unknown, Uncoded 07/25/25 16:14) Unknown seasonal allergies Allergy (Unknown, Uncoded 07/25/25 16:14) Unknown Medication List - Last Reconciled 07/25/25 by Odalis Calvo MD bupropion HCl XL 150 mg PO QAM 30 days escitalopram oxalate 15 mg PO BEDTIME fluticasone furoate 27.5 mcg/actuation (Flonase Sensimist) 1 spray intranasal DAILY hydrocortisone 1% (Anti-Itch (hydrocortisone)) 1 appl topical TID PRN 30 days ibuprofen 600 mg PO Q8H PRN 10 days lorazepam (Ativan) 1 mg PO BID PRN montelukast 10 mg PO BEDTIME ondansetron 4 mg PO Q8H PRN sumatriptan succinate 50 mg PO Q2-4H PRN 30 days trazodone 100 mg PO BEDTIME Office Procedures Flu Questionnaire Does the patient have a severe egg allergy?: No Does the patient have severe life threatening allergies?: No Does the patient have a fever or illness today?: No Has the patient ever had Guillain-[place] Syndrome?: No Has the patient ever had any past reaction to a flu shot?: No Immunizations Fluarix [id number] (PF) 45 mcg (15 mcg x 3)/0.5 mL IM syringe Performing Provider: Odalis Calvo MD [place] [facility] [place] [facility] Administered by: Brooke Causey RN on 07/25/25 16:31 Dose Route Admin Location Dispensed Lot Number Expiration Date [facility] Clinical Lab Scientist 0.5 mL IM Left Deltoid 0.5 mL [id number] 03/11/26 [id number] FREECULTR VIS Given Date VIS Provided VIS Publication Date 07/25/25 Single Vaccine 24 Eligibility Eligibility Date Funding Source Not [facility] Eligible 07/25/25 Private Assessment & Plan Assessment & Plan Orders: Orders Influenza [id number] Immunization Today Z23 - Encounter for immunization Medications: Refilled hydrocortisone 1% (Anti-Itch (hydrocortisone)) 1 appl topical TID PRN 28.4 grams 1RF skin irritation 30 days Coding
--- OUTSIDE RECORDS SUMMARY | 2025-07-25 18:43 | XMS_ITS | Encounter Summary ---
Author Organization [facility] Address [address] [place] [address] Phone Care Team Providers Care Configuration Management Manager Name Role Phone Unavailable Primary Care Provider Unavailabl e Encounter Details Date Type Department Care Team (Late st Contact Info) Description 10/25/2014 Documentation EM Family Medicine [address] [place] [address] Family Medicine, Physician [address] [place] [address] Social History Tobacco Use Types Packs/Day Years [...]
--- OUTSIDE RECORDS SUMMARY | 2025-07-25 18:43 | XMS_ITS | Encounter Summary ---
Author Organization [facility] Address [address] [place] [address] Phone Care Team Providers Care Planning Rn Name Role Phone Unavailable Primary Care Provider Unavailabl e Encounter Details Date Type Department Care Team (Late st Contact Info) Description 09/21/2016 Documentation EM Family Medicine [address] [place] [address] Family Medicine, Physician [address] [place] [address] Social History Tobacco Use Types Packs/Day Years [...]
--- OUTSIDE RECORDS SUMMARY | 2025-07-25 18:43 | XMS_ITS | Encounter Summary ---
Author Organization [facility] Address [address] [place] [address] Phone Care Team Providers Care Able Bodied Watchman Name Role Phone Unavailable Primary Care Provider Unavailabl e Encounter Details Date Type Department Care Team (Late st Contact Info) Description 12/14/2016 Documentation EM Family Medicine [address] [place] [address] Family Medicine, Physician [address] [place] [address] Social History Tobacco Use Types Packs/Day Years [...]
--- OUTSIDE RECORDS SUMMARY | 2025-07-25 18:43 | XMS_ITS | Encounter Summary ---
Author Organization [facility] Address [address] [place] [address] Phone Care Team Providers Care Glass Tube Bender Name Role Phone Unavailable Primary Care Provider Unavailabl e Encounter Details Date Type Department Care Team (Late st Contact Info) Description 12/14/2016 Documentation EM Family Medicine [address] [place] [address] Family Medicine, Physician [address] [place] [address] Social History Tobacco Use Types Packs/Day Years [...]
--- OUTSIDE RECORDS SUMMARY | 2025-07-25 18:43 | XMS_ITS | Encounter Summary ---
Author Organization [facility] Address [address] [place] [address] Phone Care Team Providers Care Trimming Machine Operator Name Role Phone Unavailable Primary Care Provider Unavailabl e Encounter Details Date Type Department Care Team (Late st Contact Info) Description 04/28/2017 Conversion Encounter [facility] - [address] [phone] Social History Tobacco Use Types Packs/Day Years [...]
--- OUTSIDE RECORDS SUMMARY | 2025-07-25 18:43 | XMS_ITS | Encounter Summary ---
Author Organization [facility] Address [address] [place] [address] Phone Care Team Providers Care Geological Technical Officer Name Role Phone Unavailable Primary Care Provider Unavailabl e Encounter Details Date Type Department Care Team (Late st Contact Info) Description 07/29/2010 Documentation EM Family Medicine [address] [place] [address] Family Medicine, Physician [address] [place] [address] Social History Tobacco Use Types Packs/Day Years [...]
--- OUTSIDE RECORDS SUMMARY | 2025-07-25 18:43 | XMS_ITS | Encounter Summary ---
Author Organization [facility] Address [address] [place] [address] Phone Care Team Providers Care Friction Paint Machine Tender Name Role Phone Unavailable Primary Care Provider Unavailabl e Encounter Details Date Type Department Care Team (Late st Contact Info) Description 03/04/2017 Documentation EM Family Medicine [address] [place] [address] Family Medicine, Physician [address] [place] [address] Social History Tobacco Use Types Packs/Day Years [...]
--- OUTSIDE RECORDS SUMMARY | 2025-07-25 18:43 | XMS_ITS | Encounter Summary ---
Author Organization [facility] Address [address] [place] [address] Phone Care Team Providers Care Paint Mixer Name Role Phone Unavailable Primary Care Provider Unavailabl e Reason for Visit * Reason Comments Med Refill Encounter Details Date Type Department Care Team (Late st Contact Info) Description 06/20/2019 Refill [facility] - [address] [address] Salazar De Leon MD Seasonal allergic rhinitis [...] pt if he is connected with a new PCP. EH * Telephone Encounter - Perri Fregoso LPN - 06/20/2019 7:21 AM EDT Refill request for Flonase. Last PE 02/28/JOD documented in this encounter Plan of Treatment Not on file documented as of this encounter Visit Diagnoses Diagnosis Seasonal allergic rhinitis Allergic rhinitis, cause unspecified documented in this encounter
--- OUTSIDE RECORDS SUMMARY | 2025-07-25 18:43 | XMS_ITS | Encounter Summary ---
Author Organization [facility] Address [address] [place] [address] Phone Care Team Providers Care Design Engineering Specialist Name Role Phone Unavailable Primary Care Provider Unavailabl e Encounter Details Date Type Department Care Team (Late st Contact Info) Description 01/07/2011 Documentation [facility] [address] [place] [address] Family Medicine, Physician [address] [place] [address] Social History Tobacco Use Types Packs/Day Years [...]
--- OUTSIDE RECORDS SUMMARY | 2025-07-25 18:43 | XMS_ITS | Encounter Summary ---
Author Organization [facility] Address [address] [place] [address] Phone Care Team Providers Care Rabbit Fancier Name Role Phone Unavailable Primary Care Provider Unavailabl e Encounter Details Date Type Department Care Team (Late st Contact Info) Description 11/17/2010 Documentation [facility] [address] [place] [address] Family Medicine, Physician [address] [place] [address] Social History Tobacco Use Types Packs/Day Years [...]
--- OUTSIDE RECORDS SUMMARY | 2025-07-25 18:43 | XMS_ITS | Encounter Summary ---
Author Organization [facility] Address [address] [place] [address] Phone Care Team Providers Care Insulation Blower Name Role Phone Unavailable Primary Care Provider Unavailabl e Encounter Details Date Type Department Care Team (Late st Contact Info) Description 10/01/2015 Documentation [facility] [address] [place] [address] Family Medicine, Physician [address] [place] [address] Social History Tobacco Use Types Packs/Day Years [...]
--- OUTSIDE RECORDS SUMMARY | 2025-07-25 18:43 | XMS_ITS | Clinical Summary ---
Author Organization [facility] Address [address] [place] [address] Phone Care Team Providers Care Roads Supervisor Name Role Phone Unavailable Primary Care Provider Unavailabl e Allergies Active Allergy Reactions Criticality Noted Date Comments Environmental 12/08/2017 [employer] Medications traZODone 150 MG tablet Take 150 [...] MCG/ACT nasal sprayIndication s:Seasonal allergic rhinitis 1 Anderson in each nostril q d prn allergies [...] patient's age to complete this topic Insurance [facility] NON PCC
--- OUTSIDE RECORDS SUMMARY | 2025-07-25 18:43 | XMS_ITS | Encounter Summary ---
Author Organization [facility] Address [address] [place] [address] Phone Care Team Providers Care Coastal/Harbor Defense Officer Name Role Phone Unavailable Primary Care Provider Unavailabl e Encounter Details Date Type Department Care Team (Late st Contact Info) Description 07/22/2010 Documentation [facility] [address] [place] [address] Family Medicine, Physician [address] [place] [address] Social History Tobacco Use Types Packs/Day Years [...]
--- OUTSIDE RECORDS SUMMARY | 2025-07-25 18:43 | XMS_ITS | Encounter Summary ---
Author Organization [facility] Address [address] [place] [id number] Phone Care Team Providers Care Planer Offbearer Name Role Phone Unavailable Primary Care Provider Unavailabl e Encounter Details Date Type Department Care Team (Late st Contact Info) Description 08/24/2010 Documentation [facility] Family Medicine [address] [place] [address] Family Medicine, Physician [address] [place] [address] Social History Tobacco Use Types Packs/Day Years [...]
--- OUTSIDE RECORDS SUMMARY | 2025-07-25 18:43 | XMS_ITS | Encounter Summary ---
Author Organization [facility] Address [address] [place] [id number] Phone Care Team Providers Care Oakes Machine Operator Name Role Phone Unavailable Primary Care Provider Unavailabl e Encounter Details Date Type Department Care Team (Late st Contact Info) Description 03/27/2015 Documentation [facility] Family Medicine [address] [place] [address] Family Medicine, Physician [address] [place] [address] Social History Tobacco Use Types Packs/Day Years [...]
== END 2025-07-25 16:33 | disposition home or self-care (01) ==
LOC: HO.HMCH 16:01
PROVIDERS: PCP Internal Medicine; Visit Provider Internal Medicine
DX: Z00.00 Encounter for general adult medical examination without abnormal findings (principal); F33.0 Major depressive disorder, recurrent, mild; L30.9 Dermatitis, unspecified; Z23 Encounter for immunization

== ENCOUNTER → 2025-07-25 16:00 | Outpatient (BNVA) | payer OTHER, SELFPAY | PROVIDERS: PCP Internal Medicine; Visit Provider Internal Medicine | DX: Z00.00 Encounter for general adult medical examination without abnormal findings (principal); F33.0 Major depressive disorder, recurrent, mild; L30.9 Dermatitis, unspecified; Z23 Encounter for immunization | CPT/HCPCS: 90471; 90656; 96127; 99395 ==